=== PATIENT | male | born 1970 | race Caucasian/White ===

== ENCOUNTER 2021-04-27 16:25 | Inpatient (IN) ==
[2021-04-27] MEDS ORDERED: cefTRIAXone SODIUM 2,000 MG/70 ML BAG IV STA (19:03)
[2021-04-27] MEDS ORDERED: VANCOMYCIN CONSULT ACTIVE PRN ×2 (19:03→23:59)
[2021-04-27] MEDS ORDERED: VANCOMYCIN HCL 2,750 MG in SODIUM CHLORIDE 0.9% 500 ML IV ONE (19:03)
[2021-04-27] MEDS ORDERED: SODIUM CHLORIDE 0.9% 1000ML 1,000 ML IV SCH (19:15)
--- NOTE | 2021-04-27 19:39 | Emergency Department Note ---
Impression & Plan Cellulitis of left arm, Bursitis of left elbow, Failure of outpatient treatment, Leukocytosis ED Provider Note NAME: TRUDY ROGEL AGE: 50 SEX: M : 1970 ARRIVES VIA: Walk-In INFORMANT: [Patient] ED PROVIDER(S): [Sergio Coleman MD] CHIEF COMPLAINT: Infection HISTORY OF PRESENT ILLNESS: The patient is a 50-year-old male presents to the ER with increasing redness and swelling to the left elbow/arm. The patient states that he has had symptoms for 5 days. Every day, the redness is worse. He has had occasional chills but no real fever documented. The patient was seen in this ED 2 days ago and placed on Keflex and Bactrim. His white count at that time was 14,000. He states that the redness has continued to spread. It is now almost to his axilla and extends down to his wrist. There has been no cough or congestion. No shortness of breath. The patient den ies any tick bites. The patient is a diabetic. There was no trauma to the left elbow. REVIEW OF SYSTEMS: See HPI for pertinent positives and negatives. A total of ten systems were reviewed and were otherwise negative. PMHx/PSHx: See Below SOCIAL HISTORY: See Below. PHYSICAL EXAM: GENERAL: Patient is in no acute distress. HEENT: No acute trauma, normocephalic atraumatic, mucous membranes moist, no nasal congestion, no scleral icterus. NECK: No stridor, no adenopathy, no meningismus, trachea is midline. LUNGS: Clear to auscultation bilaterally, no wheeze, no rhonchi, breath sounds equal. HEART: Without murmurs gallops or rubs, regular rate and rhythm. ABDOMEN: Soft, nontender, bowel sounds positive, no hernias, no peritonitis. EXTREMITIES: No cyanosis. The patient's left elbow is swollen and there is erythema that extends from his axilla down to his wrist. There is warmth. No drainage. The outlined areas of erythema clearly have increased over time. No evidence for left upper extremity neurovascular compromise. There is some fluctuance at the left elbow posterior bursa space. NEUROLOGIC: Oriented x 3, no acute motor or sensory deficits, no focal weakness. SKIN: No jaundice, no diaphoresis. DIFFERENTIAL DIAGNOSIS: Sepsis, UTI, pneumonia, metabolic abnormality, electrolyte abnormalities, olecranon bursitis, failed outpatient treatment, cardiac sources, cellulitis, UTI, bacteremia, intracerebral event, toxicologic etiology, neurologic event, as well as other pathologies. EMERGENCY DEPARTMENT COURSE/PROCEDURES: ECG: Indication was tachycardia. The ECG shows a normal sinus rhythm with a rate of 95. There is no ST elevation, no PVCs. There is poor R wave progression. The QTc is 449. Continuous Cardiac Monitoring: An order was placed for continuous cardiac monitoring. The monitor shows a rate of 106 with sinus tachycardia. MEDICAL DECISION MAKING: There is a mild leukocytosis which would be consistent with infection. There is a normal hemoglobin and platelet count. No coagulopathy. No significant electrolyte abnormality or kidney failure. Lactic acid level is not elevated making sepsis less likely. Alk phos was mildly elevated, the remaining liver enzymes were unremarkable. Covid testing is pending. On exam, the patient had a left arm olecranon bursitis and cellulitis. It had spread beyond the outlined borders. The patient was not febrile. He presented mildly tachycardic. The patient was given IV ceftriaxone and IV vancomycin. He received IV saline. I did discuss the case with orthopedics. Hospitalization is warranted as the patient is not responding to oral antibiotics. The patient can be seen by orthopedics tomorrow and the decision for operating room intervention can be made then. I spoke to the patient and case management. The on-call hospitalist was consulted. Past Med/Surg History Medical History Diabetes Hyperlipidemia Hypertension Social History Smoking Status: Never smoker Feels Safe at Home: Yes Allergies Allergies Allergy/AdvReac Type Severity Reaction Status Date / Time No Known Allergies Allergy Unverified 04/27/21 20:01 Home Meds Home Medications Medication Instructions Recorded Confirmed empagliflozin 10 mg tablet 10 mg PO DAILY 04/25/21 04/27/21 (Jardiance) metformin 1,000 mg tablet 1,000 mg PO BID 04/25/21 04/27/21 rosuvastatin 10 mg tablet 10 mg PO HS 04/25/21 04/27/21 valsartan 80 mg tablet 80 mg PO DAILY 04/25/21 04/27/21 Previous Rx's Medication Instructions Recorded cephalexin 500 mg capsule 500 mg PO Q6H 10 Days #40 cap 04/25/21 sulfamethoxazole 800 1 tab PO Q12H 10 Days #20 tab 04/25/21 mg-trimethoprim 160 mg tablet (Bactrim DS) Results & Data (ED) Vital Signs Vital Signs - 24 hr 04/27/21 16:50 04/27/21 19:03 04/27/21 19:33 Temperature 36.7 C Temperature Source Temporal Artery Scan Pulse Rate 106 H 91 H Pulse Rate [Left] Pulse Rhythm Regular Pulse Rhythm [Left] Pulse Strength [Left] Respiratory Rate 18 Respiratory Effort / Characteristics Non-Labored Non-Labored Respiratory Depth Respiratory Pattern Blood Pressure 138/82 Blood Pressure [Right Arm] Blood Pressure Mean 100 Blood Pressure Mean [Right Arm] Blood Pressure Position [Right Arm] Pulse Oximetry 97 99 Oxygen Delivery Method Room Air Room Air Sepsis Recent Fever Within 48 Hours No Sepsis New/Unexplained Change in Mental Status No Sepsis Action Taken by Nursing No Action Required 04/27/21 19:48 04/27/21 20:01 04/27/21 20:03 Temperature Temperature Source Pulse Rate Pulse Rate [Left] 96 H 89 Pulse Rhythm Pulse Rhythm [Left] Regular Regular Pulse Strength [Left] Normal Normal Respiratory Rate 18 18 18 Respiratory Effort / Characteristics Non-Labored Non-Labored Non-Labored Respiratory Depth Normal Normal Respiratory Pattern Regular Regular Blood Pressure Blood Pressure [Right Arm] 125/86 123/90 Blood Pressure Mean Blood Pressure Mean [Right Arm] 99 101 Blood Pressure Position [Right Arm] Sitting Sitting Pulse Oximetry 98 95 95 Oxygen Delivery Method Room Air Room Air Room Air Sepsis Recent Fever Within 48 Hours Sepsis New/Unexplained Change in Mental Status Sepsis Action Taken by Nursing 04/27/21 20:15 04/27/21 20:30 04/27/21 20:33 Temperature Temperature Source Pulse Rate Pulse Rate [Left] 90 90 Pulse Rhythm Pulse Rhythm [Left] Regular Regular Pulse Strength [Left] Normal Normal Respiratory Rate 18 19 18 Respiratory Effort / Characteristics Non-Labored Non-Labored Non-Labored Respiratory Depth Normal Normal Respiratory Pattern Regular Regular Blood Pressure Blood Pressure [Right Arm] 125/82 124/76 Blood Pressure Mean Blood Pressure Mean [Right Arm] 96 92 Blood Pressure Position [Right Arm] Sitting Lying Pulse Oximetry 98 98 95 Oxygen Delivery Method Room Air Room Air Room Air Sepsis Recent Fever Within 48 Hours Sepsis New/Unexplained Change in Mental Status Sepsis Action Taken by Nursing 04/27/21 20:45 04/27/21 21:00 04/27/21 21:10 Temperature Temperature Source Pulse Rate Pulse Rate [Left] 90 89 93 H Pulse Rhythm Pulse Rhythm [Left] Regular Regular Regular Pulse Strength [Left] Normal Normal Normal Respiratory Rate 18 19 19 Respiratory Effort / Characteristics Non-Labored Non-Labored Non-Labored Respiratory Depth Normal Normal Normal Respiratory Pattern Regular Regular Regular Blood Pressure Blood Pressure [Right Arm] 115/84 131/91 131/91 Blood Pressure Mean Blood Pressure Mean [Right Arm] 94 104 104 Blood Pressure Position [Right Arm] Lying Lying Pulse Oximetry 96 95 99 Oxygen Delivery Method Room Air Room Air Room Air Sepsis Recent Fever Within 48 Hours Sepsis New/Unexplained Change in Mental Status Sepsis Action Taken by [facility] Medications Current Medication List: was personally reviewed by me Laboratory Data Attestation: I reviewed the patient's lab results. Result diagrams: 04/27/21 19:25 04/27/21 19:25 Lab Results 04/27/21 04/27/21 04/27/21 Range/Units 19:25 19:25 19:25 WBC 13.85 H (4.8-10.8) K/uL RBC 5.06 (4.7-6.1) M/uL Hgb 16.4 (14.0-18.0) g/dL Hct 46.5 (42-52) % MCV 91.9 (80-100) fL MCH 32.4 (25-34) pg MCHC 35.3 (32-36) g/dL RDW Std Deviation 43.0 (36.4-46.3) fL RDW Coeff of Michael 12.8 (11.5-14.5) % Plt Count 242 (130-400) K/uL MPV 11.1 H (7.4-10.4) fL Immature Gran % (Auto) 0.4 % Neut % (Auto) 75.3 % Lymph % (Auto) 12.5 % [place] % (Auto) 10.7 % Eos % (Auto) 1.0 % Baso % (Auto) 0.1 % Neut # (Auto) 10.42 H (1.4-6.5) K/uL Lymph # (Auto) 1.73 (1.2-3.4) K/uL [place] # (Auto) 1.48 H (0.11-0.59) K/uL Eos # (Auto) 0.14 (0-0.5) K/uL Baso # (Auto) 0.02 (0-0.2) K/uL Immature Gran # (Auto) 0.06 H (0.00-0.02) K/uL PT 9.8 (9.0-12.0) Seconds INR 1.0 (0.9-1.1) APTT 28.9 (21.0-31.0) Seconds PTT Ratio 1.1 Sodium 136 (136-145) mmol/L Potassium 4.3 (3.5-5.1) mmol/L Chloride 103 (98-107) mmol/L Carbon Dioxide 26 (21-32) mmol/L Anion Gap 7.0 (3-11) BUN 14 (7-18) mg/dl Creatinine 0.99 (0.6-1.4) mg/dl Est Cr Clr Drug Dosing 120.0 ml/min Est GFR ( Amer) 101.8 ml/min Est GFR (Non-Af Amer) 87.8 ml/min BUN/Creatinine Ratio 14.2 (10-20) Glucose 160 H (70-99) mg/dl Lactate (0.4-2.0) mmol/L Uric Acid 3.1 (2.6-7.2) mg/dl Calcium 9.4 (8.5-10.1) mg/dl Magnesium 2.3 (1.8-2.4) mg/dl Total Bilirubin 0.7 (0.2-1) mg/dl AST 13 L (15-37) U/L ALT 59 (12-78) U/L Alkaline Phosphatase 146 H (45-117) U/L Total Protein 8.0 (6.4-8.2) gm/dl Albumin 3.3 L (3.4-5.0) gm/dl Globulin 4.7 H (2.5-4.0) gm/dl Albumin/Globulin Ratio 0.7 L (0.9-2) Procalcitonin (0-0.5) ng/ml COVID-19 Eval Order 04/27/21 04/27/21 04/27/21 Range/Units 19:25 19:25 20:57 WBC (4.8-10.8) K/uL RBC (4.7-6.1) M/uL Hgb (14.0-18.0) g/dL Hct (42-52) % MCV (80-100) fL MCH (25-34) pg MCHC (32-36) g/dL RDW Std Deviation (36.4-46.3) fL RDW Coeff of Michael (11.5-14.5) % Plt Count (130-400) K/uL MPV (7.4-10.4) fL Immature Gran % (Auto) % Neut % (Auto) % Lymph % (Auto) % [place] % (Auto) % Eos % (Auto) % Baso % (Auto) % Neut # (Auto) (1.4-6.5) K/uL Lymph # (Auto) (1.2-3.4) K/uL [place] # (Auto) (0.11-0.59) K/uL Eos # (Auto) (0-0.5) K/uL Baso # (Auto) (0-0.2) K/uL Immature Gran # (Auto) (0.00-0.02) K/uL PT (9.0-12.0) Seconds INR (0.9-1.1) APTT (21.0-31.0) Seconds PTT Ratio Sodium (136-145) mmol/L Potassium (3.5-5.1) mmol/L Chloride (98-107) mmol/L Carbon Dioxide (21-32) mmol/L Anion Gap (3-11) BUN (7-18) mg/dl Creatinine (0.6-1.4) mg/dl Est Cr Clr Drug Dosing ml/min Est GFR ( Amer) ml/min Est GFR (Non-Af Amer) ml/min BUN/Creatinine Ratio (10-20) Glucose (70-99) mg/dl Lactate 1.5 (0.4-2.0) mmol/L Uric Acid (2.6-7.2) mg/dl Calcium (8.5-10.1) mg/dl Magnesium (1.8-2.4) mg/dl Total Bilirubin (0.2-1) mg/dl AST (15-37) U/L ALT (12-78) U/L Alkaline Phosphatase (45-117) U/L Total Protein (6.4-8.2) gm/dl Albumin (3.4-5.0) gm/dl Globulin (2.5-4.0) gm/dl Albumin/Globulin Ratio (0.9-2) Procalcitonin 0.56 H (0-0.5) ng/ml COVID-19 Eval Order Covid19 at [facility] Administered Medications Vancomycin HCl 2,750 mg/ (Sodium Chloride) 555 mls @ 200 mls/hr IV NOW ONE Stop: 04/27/21 21:50 Last Admin: 04/27/21 20:07 Dose: 200 mls/hr Documented by: [id number] Discontinued Medications Sodium Chloride (Nss 1000ml) 1,000 mls @ 999 mls/hr IV .Q1H1M FITO Stop: 04/27/21 20:15 Last Infusion: 04/27/21 20:37 Dose: 0 mls/hr Documented by: [id number] Admin: 04/27/21 19:26 Dose: 999 mls/hr Documented by: [id number] Ceftriaxone Sodium (Rocephin) 2,000 mg in 70 mls @ 140 mls/hr IV NOW STA Stop: 04/27/21 19:32 Last Infusion: 04/27/21 20:37 Dose: 0 mls/hr Documented by: [id number] Admin: 04/27/21 20:00 Dose: 140 mls/hr Documented by: [id number] Discharge Plan Visit Data Chief Complaint: Elbow Injury/Pain Stated Complaint: L ELBOW PAIN ED Provider: Sergio Coleman Discharge Problem: Cellulitis of left arm, Bursitis of left elbow, Failure of outpatient treatment, Leukocytosis Patient Disposition: Admitted As Inpatient Condition: Fair Forms Stand Alone Forms: My [facility] Prescriptions Prescriptions: No Action valsartan 80 mg tablet 80 mg PO DAILY RF: 0 metformin 1,000 mg tablet 1,000 mg PO BID RF: 0 rosuvastatin 10 mg tablet 10 mg PO HS RF: 0 Jardiance 10 mg tablet 10 mg PO DAILY RF: 0 sulfamethoxazole-trimethoprim [Bactrim DS] 800-160 mg tablet 1 tab PO Q12H 10 Days Qty: 20 RF: 0 cephalexin 500 mg capsule 500 mg PO Q6H 10 Days Qty: 40 RF: 0 Referrals Referrals: PCP,NO [Primary Care Provider] -
[2021-04-27 19:55] LABS: Basophils # (auto) 0.02 K/uL (0-0.2); Basophils % (auto) 0.1 %; Eosinophils # (auto) 0.14 K/uL (0-0.5); Hematocrit (blood only) 46.5 % (42-52); Hemoglobin 16.4 g/dL (14.0-18.0); Immature Granulocytes # (auto) 0.06 K/uL (0.00-0.02); Immature Granulocytes % (auto) 0.4 %; Lymphocytes # (auto) 1.73 K/uL (1.2-3.4); Lymphocytes % (auto) 12.5 %; Mean Corpuscular Hemoglobin 32.4 pg (25-34); Mean Corpuscular Hgb Conc 35.3 g/dL (32-36); Mean Corpuscular Volume 91.9 fL (80-100); Mean Platelet Volume 11.1 fL (7.4-10.4); Monocytes # (auto) 1.48 K/uL (0.11-0.59); Monocytes % (auto) 10.7 %; Neutrophils # (auto) 10.42 K/uL (1.4-6.5); Neutrophils % (auto) 75.3 %; Platelet Count 242 K/uL (130-400); RDW Coefficient of Variation 12.8 % (11.5-14.5); Red Blood Count 5.06 M/uL (4.7-6.1); White Blood Count 13.85 K/uL (4.8-10.8)
[2021-04-27 20:03] LABS: Partial Thromboplastin Ratio 1.1; Partial Thromboplastin Time 28.9 Seconds (21.0-31.0); Prothrombin Time 9.8 Seconds (9.0-12.0)
[2021-04-27 20:13] LABS: Albumin Level 3.3 gm/dl (3.4-5.0); BUN Creatinine Ratio 14.2 (10-20); Calcium 9.4 mg/dl (8.5-10.1); Est GFR (African American) 101.8 ml/min; Est GFR (Non-African American) 87.8 ml/min; Magnesium 2.3 mg/dl (1.8-2.4); Potassium 4.3 mmol/L (3.5-5.1)
[2021-04-27 20:26] LABS: Albumin Globulin Ratio 0.7 (0.9-2); Bilirubin,Total 0.7 mg/dl (0.2-1); Globulin 4.7 gm/dl (2.5-4.0)
[2021-04-27 21:15] LABS: Uric Acid 3.1 mg/dl (2.6-7.2)
--- NOTE | 2021-04-27 22:01 | History & Physical Report ---
Date of Service April 27, 2021 Assessment & Plan (1) Cellulitis of left arm: Plan: Cellulitis of left arm/failure of outpatient treatment- Hold Keflex and Bactrim Continue vancomycin IV and ceftriaxone IV begun in the ED I did add a uric acid level with concerns regarding possible underlying gout, due to patient's diet and associated family history of a brother with gout. Uric acid level was normal, however, if patient's symptoms persist despite appropriate abortive therapy, he should have a trial of colchicine (2) Hypertension: Plan: Continue valsartan (3) Hyperlipidemia: Plan: Continue rosuvastatin 10 mg in the evening (4) Diabetes: Plan: Hold Jardiance and Metformin Patient Accu-Cheks before meals and at bedtime with NovoLog coverage per scale Check hemoglobin A1c (5) Failure of outpatient treatment: Plan: Outpatient antibiotics Keflex and Bactrim are being held, in favor of inpatient IV vancomycin and ceftriaxone History of Present Illness Chief Complaint: The patient presents to the emergency department with complaint of worsening swelling, redness and warmth of left arm and elbow despite treatment with Keflex and Bactrim began from the ED 2 days ago Primary Care Provider: NO PCP The patient is a 50-year-old male with a past medical history including diabetes mellitus, hyperlipidemia, hypertension and obesity who was initially seen in the emergency department on 04/25/2021, diagnosed with cellulitis of left arm and elbow, and was started on Keflex and Bactrim and advised to follow-up with his family physician. The patient presents to the emergency department today with worsening symptoms as noted above, despite appropriate use these antibiotics. He denies any recent trauma, he denies any tick bites he denies any sick exposures. He does eat a lot of red meats and seafood. He does have a brother with an episode of gout, however, he himself has not have any personal history of gout Allergies Allergy/AdvReac Type Severity Reaction Status Date / Time No Known Allergies Allergy Unverified 04/27/21 20:01 Home Medications Medication Instructions Recorded Confirmed Type cephalexin 500 mg capsule 500 mg PO Q6H 10 Days #40 cap 04/25/21 04/27/21 Rx empagliflozin 10 mg tablet 10 mg PO DAILY 04/25/21 04/27/21 History (Jardiance) metformin 1,000 mg tablet 1,000 mg PO BID 04/25/21 04/27/21 History rosuvastatin 10 mg tablet 10 mg PO HS 04/25/21 04/27/21 History sulfamethoxazole 800 1 tab PO Q12H 10 Days #20 tab 04/25/21 04/27/21 Rx mg-trimethoprim 160 mg tablet (Bactrim DS) valsartan 80 mg tablet 80 mg PO DAILY 04/25/21 04/27/21 History Past Med/Surg History Medical History (Updated 04/28/21 @ 04:37 by Celestino Matamoros MD) Diabetes Hyperlipidemia Hypertension Social History Smoking Status: Never smoker Second Hand Exposure: No; Hx Alcohol Use: Yes Alcohol type: beer, wine and hard liquor Hx Substance Use: No Preferred Language: Azeri Communication Ability: Effective Video Arcade Manager Required: No Beliefs That Will Affect Care: None Current Living Situation: Family Current Living Situation Comment: Son and daughter Other Information That Helps Us Care for You: No Feels Safe at Home: Yes Safety Concerns: Feels Safe At This Time Assistive Devices: None Review of Systems Review of Systems: The patient denies chest pain, palpitations, shortness of breath, dyspnea on exertion, cough, lower extremity swelling, sore throat, fevers, chills, sweats, weight change, fatigue, nausea, vomiting, diarrhea , constipation, abdominal pain, pelvic pain, blood in urine or stool, dysuria, urinary frequency or urgency, lightheadedness, dizziness, headache, memory loss, loss of consciousness, abnormal bruising or bleeding, imbalance, focal or generalized weakness, numbness or tingling in legs, generalized arthralgias or myalgias, back or neck pain, or night sweats. The review of systems is otherwise negative other than for that already noted above, and at least 10 systems have been reviewed. Physical Exam Physical Exam: The patient is awake, alert and oriented 3, well developed and well nourished, normocephalic and atraumatic, lying in bed and in no acute distress. HEENT--PERRL, EOMI, mucous membranes and oropharynx normal. Neck--supple. No JVD. No bruits. Thyroid normal, trachea midline, no adenopathy. Heart--normal S1 and S2. No murmurs, rubs or gallops. Lungs--clear bilaterally, no respiratory distress, no accessory muscle use. Abdomen--normal bowel sounds and soft. Nontender. Nondistended, no hernias or masses, no organomegaly. Extremities--bilateral lower extremities with no edema. Dermatologic--left elbow with erythema extending proximally to jail up bicep, and distally toward wrist but not involving hand. Skin is warm to touch Neurologic--cranial nerves II through XII grossly intact. Rheumatologic--normal range of motion except for left elbow, with decreased ability to flex Psychiatric--normal affect. Results & Data Results & Data ([facility]) Vital Signs (Past 12 Hours) Vital Signs Temp Pulse Pulse Resp BP BP Pulse Ox 04/27/21 21:30 98 H 18 117/77 96 04/27/21 21:15 97 H 18 119/85 96 04/27/21 21:10 93 H 19 131/91 99 04/27/21 21:00 89 19 131/91 95 04/27/21 20:45 90 18 115/84 96 04/27/21 20:33 18 95 04/27/21 20:30 90 19 124/76 98 04/27/21 20:15 90 18 125/82 98 04/27/21 20:03 18 95 04/27/21 20:01 89 18 123/90 95 04/27/21 19:48 96 H 18 125/86 98 04/27/21 19:03 91 H 99 04/27/21 16:50 98.1 F 106 H 18 138/82 97 Laboratory Results Laboratory Results WBC 13.85 K/uL (4.8-10.8) H 04/27/21 19:25 RBC 5.06 M/uL (4.7-6.1) 04/27/21 19:25 Hgb 16.4 g/dL (14.0-18.0) 04/27/21 19:25 Hct 46.5 % (42-52) 04/27/21 19:25 MCV 91.9 fL (80-100) 04/27/21 19:25 MCH 32.4 pg (25-34) 04/27/21 19:25 MCHC 35.3 g/dL (32-36) 04/27/21 19:25 RDW Std Deviation 43.0 fL (36.4-46.3) 04/27/21 19:25 RDW Coeff of Michael 12.8 % (11.5-14.5) 04/27/21 19:25 Plt Count 242 K/uL (130-400) 04/27/21 19:25 MPV 11.1 fL (7.4-10.4) H 04/27/21 19:25 Immature Gran % (Auto) 0.4 % 04/27/21 19:25 Neut % (Auto) 75.3 % 04/27/21 19:25 Lymph % (Auto) 12.5 % 04/27/21 19:25 [place] % (Auto) 10.7 % 04/27/21 19:25 Eos % (Auto) 1.0 % 04/27/21:25 Baso % (Auto) 0.1 % 04/27/21: Neut # (Auto) 10.42 K/uL (1.4-6.5) H 04/27/21 19:25 Lymph # (Auto) 1.73 K/uL (1.2-3.4) 04/27/21 19:25 [place] # (Auto) 1.48 K/uL (0.11-0.59) H 04/27/21 19:25 Eos # (Auto) 0.14 K/uL (0-0.5) 04/27/21 19:25 Baso # (Auto) 0.02 K/uL (0-0.2) 04/27/21 19: Immature Gran # (Auto) 0.06 K/uL (0.00-0.02) H 04/27/21 19:25 PT 9.8 Seconds (9.0-12.0) 04/27/21 19:25 INR 1.0 (0.9-1.1) 04/27/21 19:25 APTT 28.9 Seconds (21.0-31.0) 04/27/21 19:25 PTT Ratio 1.1 04/27/21 19:25 Sodium 136 mmol/L (136-145) 04/27/21 19:25 Potassium 4.3 mmol/L (3.5-5.1) 04/27/21 19:25 Chloride 103 mmol/L (98-107) 04/27/21 19:25 Carbon Dioxide 26 mmol/L (21-32) 04/27/21 19:25 Anion Gap 7.0 (3-11) 04/27/21 19:25 BUN 14 mg/dl (7-18) 04/27/21 19:25 Creatinine 0.99 mg/dl (0.6-1.4) 04/27/21 19:25 Est Cr Clr Drug Dosing 120.0 ml/min 04/27/21 19:25 Est GFR ( Amer) 101.8 ml/min 04/27/21 19:25 Est GFR (Non-Af Amer) 87.8 ml/min 04/27/21 19:25 BUN/Creatinine Ratio 14.2 (10-20) 04/27/21 19:25 Glucose 160 mg/dl (70-99) H 04/27/21 19:25 Lactate 1.5 mmol/L (0.4-2.0) 04/27/21 19:25 Uric Acid 3.1 mg/dl (2.6-7.2) 04/27/21 19:25 Calcium 9.4 mg/dl (8.5-10.1) 04/27/21 19:25 Magnesium 2.3 mg/dl (1.8-2.4) 04/27/21 19:25 Total Bilirubin 0.7 mg/dl (0.2-1) 04/27/21 19:25 AST 13 U/L (15-37) L 04/27/21 19:25 ALT 59 U/L (12-78) 04/27/21 19:25 Alkaline Phosphatase 146 U/L (45-117) H 04/27/21 19:25 Total Protein 8.0 gm/dl (6.4-8.2) 04/27/21 19:25 Albumin 3.3 gm/dl (3.4-5.0) L 04/27/21 19:25 Globulin 4.7 gm/dl (2.5-4.0) H 04/27/21 19:25 Albumin/Globulin Ratio 0.7 (0.9-2) L 04/27/21 19:25 Procalcitonin 0.56 ng/ml (0-0.5) H 04/27/21 19:25 COVID-19 Eval Order Covid19 at [facility] 04/27/21 20:57 SARS-CoV-2 (PCR) NEGATIVE (Negative) 04/27/21 20:57 Code Status & VTE Plan Code Status Full code VTE Prophylaxis Plan VTE Prophylaxis will be ordered: Yes PG Care Time/CCT Total # of Minutes Spent Total Time Spent with Patient: Total time spent is greater than 50% in coordination of care (as documented) at patient's floor/unit and/or counseling patient: Coding Level of Care Code 77134 Initial Inpt Care Lvl 3 Diagnoses Hypertension I10 Hyperlipidemia E78.5 Diabetes E11.9 Cellulitis of left arm L03.114 Failure of outpatient treatment Z78.9
[2021-04-27] MEDS ORDERED: ONDANSETRON INJ 2 MG/ML 2 ML VIAL IV PRN (23:59)
[2021-04-28] MEDS ORDERED: ACETAMINOPHEN 325 MG TAB ONE (00:39)
[2021-04-28] MEDS: VANCOMYCIN HCL 1,750 MG in SODIUM CHLORIDE 0.9% 500 ML IV SCH ×3 (04:08→21:27)
[2021-04-28 07:18] LABS: Basophils # (auto) 0.01 K/uL (0-0.2); Basophils % (auto) 0.1 %; Eosinophils # (auto) 0.07 K/uL (0-0.5); Eosinophils % (auto) 0.5 %; Hematocrit (blood only) 42.4 % (42-52); Hemoglobin 14.7 g/dL (14.0-18.0); Immature Granulocytes # (auto) 0.04 K/uL (0.00-0.02); Immature Granulocytes % (auto) 0.3 %; Lymphocytes % (auto) 9.1 %; Mean Corpuscular Hemoglobin 32.1 pg (25-34); Mean Corpuscular Hgb Conc 34.7 g/dL (32-36); Mean Corpuscular Volume 92.6 fL (80-100); Monocytes % (auto) 9.8 %; Neutrophils # (auto) 11.49 K/uL (1.4-6.5); Neutrophils % (auto) 80.2 %; Platelet Count 259 K/uL (130-400); RDW Coefficient of Variation 12.8 % (11.5-14.5); RDW Standard Deviation 43.3 fL (36.4-46.3); Red Blood Count 4.58 M/uL (4.7-6.1); White Blood Count 14.31 K/uL (4.8-10.8)
[2021-04-28] MEDS: VALSARTAN 80 MG TAB PO SCH (07:48)
[2021-04-28] MEDS: cefTRIAXone SODIUM 2,000 MG in DEXTROSE 5% 50 ML IV SCH (07:48)
[2021-04-28 07:49] LABS: Albumin Level 2.8 gm/dl (3.4-5.0); Calcium 8.3 mg/dl (8.5-10.1); Creatinine Clr Calc Pharmacy 144.6 ml/min; Est GFR (African American) 118.7 ml/min; Est GFR (Non-African American) 102.4 ml/min; Magnesium 1.9 mg/dl (1.8-2.4); Potassium 4.1 mmol/L (3.5-5.1)
[2021-04-28 07:52] LABS: Albumin Globulin Ratio 0.7 (0.9-2); Bilirubin,Total 0.9 mg/dl (0.2-1); Globulin 4.1 gm/dl (2.5-4.0); Total Protein 6.9 gm/dl (6.4-8.2)
--- NOTE | 2021-04-28 08:53 | Pharmacy Report ---
Pharmacy Abx Dose Short Note - Date of Service April 28, 2021 - Assessment & Plan Assessment 50 year old M admitted last evening secondary to worsening left arm cellulitis * PMHx significant for T2DM * He was started on Cephalexin and Bactrim DS as an outpatient on 04/25/21. Redness and warmth worsened into 04/27/21 despite abx so patient presented to the ED. * He remains afebrile. Leukocytosis of 14.3k today. Renal fxn is stable and at baseline. Procalcitonin upon admission was 0.56 ng/mL. * Blood cultures are pending. Plan Vancomycin * Loading Dose: 2750 mg (~24 mg/kg) IV x 1 * Maintenance Dose: 1750 (~15 mg/kg) IV every 8 hours * Goal trough level: ~15 mcg/mL * Ordered a trough level for 04/29/21 prior to the 1400 dose Ceftriaxone (not a pharmacy consult) * 2000 mg IV every 24 hours * Appropriate per indication and body weight Pharmacy will continue to follow and will adjust dose/frequency as necessary. Thank you.
[2021-04-28] MEDS: ACETAMINOPHEN 325 MG TAB PO PRN ×3 (08:54→18:29)
--- NOTE | 2021-04-28 12:52 | Hospitalist Progress Note ---
Date of Service April 28, 2021 Assessment & Plan (1) Cellulitis of left arm: Plan: Cellulitis of left arm/failure of outpatient treatment- With significant fluctuance over left elbow with small scab centrally, ++erythema from wrist up to axilla over majority of LUE, decreased ROM 10-90 degrees left elbow, +TTP and warmth Leukocytosis worse, afebrile here, BCxs NGTD Suspect septic olecranon bursitis and surrounding cellulitis No h/o MRSA or frequent skin infections but does have DMII Uric acid normal and do not suspect gout -check CT scan left elbow -consult Ortho to see about need for I&D -Continue vancomycin IV and ceftriaxone IV -follow CBC -pt already ate today for lunch so would not likely be able to do surgery today if needed (2) Hypertension: Plan: BPs controlled Continue valsartan (3) Hyperlipidemia: Plan: Continue rosuvastatin 10 mg in the evening (4) Diabetes: Plan: Hold Jardiance and Metformin add on SSI today, accuchecks Check hemoglobin A1c (5) Failure of outpatient treatment: Plan: Outpatient antibiotics Keflex and Bactrim are being held, in favor of inpatient IV vancomycin and ceftriaxone (6) DVT prophylaxis: Plan: add SCDs, no Lovenox for now in case of need for surgery Dispo-continued stay Admission and Anticipated Discharge Date Admission Date: April 27, 2021 Subjective Pt very frustrated that his arm is not improving. Has had fevers/chills subjectively at home. has pain and decreased flexion in elbow. Denies CP, SOB, abd pain, nausea, or diarrhea. Has failed outpatient Bactrim, keflex over the last 2 days. Says arm today no better than yesterday since receiving IV abx. Review of Systems Review of Systems: All systems reviewed & are unremarkable except as noted in HPI & below Physical Exam Constitutional: WD/WN, vitals as above Eyes: + anicteric sclerae ENMT: external ear and nose normal, oropharynx normal Neck: trachea midline, no thyromegaly Respiratory: normal respiratory effort, lungs clear to auscultation Cardiovascular: RRR, no murmur, no edema Chest (Breasts): Chest: normal inspection of chest Gastrointestinal (Abdomen): normal bowel sounds, soft, nontender, no hepatosplenomegaly Musculoskeletal: Extremities: + limited ROM of extremities (L elbow 10-90 degrees ) and + elbow/forearm abnormality Left (fluctuence palpated over left elbow,small scab); + extremities abnormal to inspection (LUE almost completely erythematous,edematous), no cyanosis and no clubbing Skin: no rashes, warm and dry Neurologic: moves all extremities and awake; no focal motor deficits Psychiatric: A+Ox3, euthymic affect Lymphatic: no lymphedema Results & Data Results & Data ([facility]) Vital Signs (Past 12 Hours) Vital Signs Temp Pulse Resp BP Pulse Ox 04/28/21 07:00 37.2 C 103 H 16 120/76 92 Laboratory Results 04/28/21 04/28/21 04/27/21 Range/Units 06:47 06:47 20:57 WBC 14.31 H (4.8-10.8) K/uL RBC 4.58 L (4.7-6.1) M/uL Hgb 14.7 (14.0-18.0) g/dL Hct 42.4 (42-52) % MCV 92.6 (80-100) fL MCH 32.1 (25-34) pg MCHC 34.7 (32-36) g/dL RDW Std Deviation 43.3 (36.4-46.3) fL RDW Coeff of Michael 12.8 (11.5-14.5) % Plt Count 259 (130-400) K/uL MPV 11.0 H (7.4-10.4) fL Immature Gran % (Auto) 0.3 % Neut % (Auto) 80.2 % Lymph % (Auto) 9.1 % [place] % (Auto) 9.8 % Eos % (Auto) 0.5 % Baso % (Auto) 0.1 % Neut # (Auto) 11.49 H (1.4-6.5) K/uL Lymph # (Auto) 1.30 (1.2-3.4) K/uL [place] # (Auto) 1.40 H (0.11-0.59) K/uL Eos # (Auto) 0.07 (0-0.5) K/uL Baso # (Auto) 0.01 (0-0.2) K/uL Immature Gran # (Auto) 0.04 H (0.00-0.02) K/uL PT (9.0-12.0) Seconds INR (0.9-1.1) APTT (21.0-31.0) Seconds PTT Ratio Sodium 134 L (136-145) mmol/L Potassium 4.1 (3.5-5.1) mmol/L Chloride 104 (98-107) mmol/L Carbon Dioxide 21 (21-32) mmol/L Anion Gap 10.0 (3-11) BUN 13 (7-18) mg/dl Creatinine 0.82 (0.6-1.4) mg/dl Est Cr Clr Drug Dosing 144.6 ml/min Est GFR ( Amer) 118.7 ml/min Est GFR (Non-Af Amer) 102.4 ml/min BUN/Creatinine Ratio 16.0 (10-20) Glucose 156 H (70-99) mg/dl Lactate (0.4-2.0) mmol/L Uric Acid (2.6-7.2) mg/dl Calcium 8.3 L (8.5-10.1) mg/dl Magnesium 1.9 (1.8-2.4) mg/dl Total Bilirubin 0.9 (0.2-1) mg/dl AST 11 L (15-37) U/L ALT 42 (12-78) U/L Alkaline Phosphatase 121 H (45-117) U/L Total Protein 6.9 (6.4-8.2) gm/dl Albumin 2.8 L (3.4-5.0) gm/dl Globulin 4.1 H (2.5-4.0) gm/dl Albumin/Globulin Ratio 0.7 L (0.9-2) Procalcitonin (0-0.5) ng/ml COVID-19 Eval Order SARS-CoV-2 (PCR) NEGATIVE (Negative) 04/27/21 04/27/21 04/27/21 Range/Units 20:57 19:25 19:25 WBC (4.8-10.8) K/uL RBC (4.7-6.1) M/uL Hgb (14.0-18.0) g/dL Hct (42-52) % MCV (80-100) fL MCH (25-34) pg MCHC (32-36) g/dL RDW Std Deviation (36.4-46.3) fL RDW Coeff of Michael (11.5-14.5) % Plt Count (130-400) K/uL MPV (7.4-10.4) fL Immature Gran % (Auto) % Neut % (Auto) % Lymph % (Auto) % [place] % (Auto) % Eos % (Auto) % Baso % (Auto) % Neut # (Auto) (1.4-6.5) K/uL Lymph # (Auto) (1.2-3.4) K/uL [place] # (Auto) (0.11-0.59) K/uL Eos # (Auto) (0-0.5) K/uL Baso # (Auto) (0-0.2) K/uL Immature Gran # (Auto) (0.00-0.02) K/uL PT (9.0-12.0) Seconds INR (0.9-1.1) APTT (21.0-31.0) Seconds PTT Ratio Sodium (136-145) mmol/L Potassium (3.5-5.1) mmol/L Chloride (98-107) mmol/L Carbon Dioxide (21-32) mmol/L Anion Gap (3-11) BUN (7-18) mg/dl Creatinine (0.6-1.4) mg/dl Est Cr Clr Drug Dosing ml/min Est GFR ( Amer) ml/min Est GFR (Non-Af Amer) ml/min BUN/Creatinine Ratio (10-20) Glucose (70-99) mg/dl Lactate 1.5 (0.4-2.0) mmol/L Uric Acid (2.6-7.2) mg/dl Calcium (8.5-10.1) mg/dl Magnesium (1.8-2.4) mg/dl Total Bilirubin (0.2-1) mg/dl AST (15-37) U/L ALT (12-78) U/L Alkaline Phosphatase (45-117) U/L Total Protein (6.4-8.2) gm/dl Albumin (3.4-5.0) gm/dl Globulin (2.5-4.0) gm/dl Albumin/Globulin Ratio (0.9-2) Procalcitonin 0.56 H (0-0.5) ng/ml COVID-19 Eval Order Covid19 at [facility] SARS-CoV-2 (PCR) (Negative) 04/27/21 04/27/21 04/27/21 Range/Units 19:25 19:25 19:25 WBC 13.85 H (4.8-10.8) K/uL RBC 5.06 (4.7-6.1) M/uL Hgb 16.4 (14.0-18.0) g/dL Hct 46.5 (42-52) % MCV 91.9 (80-100) fL MCH 32.4 (25-34) pg MCHC 35.3 (32-36) g/dL RDW Std Deviation 43.0 (36.4-46.3) fL RDW Coeff of Michael 12.8 (11.5-14.5) % Plt Count 242 (130-400) K/uL MPV 11.1 H (7.4-10.4) fL Immature Gran % (Auto) 0.4 % Neut % (Auto) 75.3 % Lymph % (Auto) 12.5 % [place] % (Auto) 10.7 % Eos % (Auto) 1.0 % Baso % (Auto) 0.1 % Neut # (Auto) 10.42 H (1.4-6.5) K/uL Lymph # (Auto) 1.73 (1.2-3.4) K/uL [place] # (Auto) 1.48 H (0.11-0.59) K/uL Eos # (Auto) 0.14 (0-0.5) K/uL Baso # (Auto) 0.02 (0-0.2) K/uL Immature Gran # (Auto) 0.06 H (0.00-0.02) K/uL PT 9.8 (9.0-12.0) Seconds INR 1.0 (0.9-1.1) APTT 28.9 (21.0-31.0) Seconds PTT Ratio 1.1 Sodium 136 (136-145) mmol/L Potassium 4.3 (3.5-5.1) mmol/L Chloride 103 (98-107) mmol/L Carbon Dioxide 26 (21-32) mmol/L Anion Gap 7.0 (3-11) BUN 14 (7-18) mg/dl Creatinine 0.99 (0.6-1.4) mg/dl Est Cr Clr Drug Dosing 120.0 ml/min Est GFR ( Amer) 101.8 ml/min Est GFR (Non-Af Amer) 87.8 ml/min BUN/Creatinine Ratio 14.2 (10-20) Glucose 160 H (70-99) mg/dl Lactate (0.4-2.0) mmol/L Uric Acid 3.1 (2.6-7.2) mg/dl Calcium 9.4 (8.5-10.1) mg/dl Magnesium 2.3 (1.8-2.4) mg/dl Total Bilirubin 0.7 (0.2-1) mg/dl AST 13 L (15-37) U/L ALT 59 (12-78) U/L Alkaline Phosphatase 146 H (45-117) U/L Total Protein 8.0 (6.4-8.2) gm/dl Albumin 3.3 L (3.4-5.0) gm/dl Globulin 4.7 H (2.5-4.0) gm/dl Albumin/Globulin Ratio 0.7 L (0.9-2) Procalcitonin (0-0.5) ng/ml COVID-19 Eval Order SARS-CoV-2 (PCR) (Negative) PG Care Time/CCT Total # of Minutes Spent Total Time Spent with Patient: Total time spent is greater than 50% in coordination of care (as documented) at patient's floor/unit and/or counseling patient: Coding Level of Care Code 91305 Subseq Hosp Care Lvl 3 Diagnoses Cellulitis of left arm L03.114 Hypertension I10 Hyperlipidemia E78.5 Diabetes E11.9 Failure of outpatient treatment Z78.9 DVT prophylaxis Z29.9
[2021-04-28] MEDS ORDERED: DEXTROSE 50% 50 ML SYRINGE IV PRN (13:00)
[2021-04-28] MEDS ORDERED: GLUCOSE 10 TABS/TUBE PO PRN (13:00)
[2021-04-28] MEDS ORDERED: GLUCAGON FOR INJ 1 MG VIAL SQ PRN (13:00)
[2021-04-28] MEDS ORDERED: GLUCOSE 40% GEL 15 GM TUBE PO PRN (13:00)
[2021-04-28] MEDS ORDERED: CARBOHYDRATES FOR HYPOGLYCEMIA PO PRN (13:00)
--- NOTE | 2021-04-28 13:55 | Electrocardiogram Report ---
Test Reason : Blood Pressure : / mmHG Vent. Rate : 095 BPM Atrial Rate : 095 BPM P-R Int : 126 ms QRS Dur : 096 ms QT Int : 358 ms P-R-T Axes : 023 -14 013 degrees QTc Int : 449 ms Poor data quality, interpretation may be adversely affected Normal sinus rhythm Cannot rule out Anterior infarct , age undetermined Abnormal ECG No previous ECGs available Confirmed by Guzman Rdz ([id number]) on 04/28/2021 1:54:54 PM Referred By: REFERRED SELF Confirmed By:Yaron Rdz
[2021-04-28] MEDS ORDERED: OPTIRAY 320 100ml IV ONE (14:49)
--- NOTE | 2021-04-28 15:06 | CT Scan Report ---
CT elbow LT w con HISTORY: 50 years-old Male cellulitis left upper extremity,suspect abscess acute pain and swelling o f the left upper extremity and elbow. COMPARISON: Left upper radiographs 04/25/2021 TECHNIQUE: Multiple axial CT images of the left elbow were obtained following the intravenous adminis tration of 93 mL Optiray 320. A dose lowering technique was used consistent with the principals of BONITA ANDERSON. FINDINGS: Atherosclerotic plaque imaged arterial structures. There is moderate to marked dorsal subcutaneous ed steph of the elbow, distal upper arm and proximal forearm. There is a multilocular fluid attenuating coreas bcutaneous collection with peripheral and septal enhancement involving the dorsal elbow and proximal forearm. This demonstrates ill-defined margins and measures up to approximately 10.1 x 1.9 x 9.3 cm. 2 mm radiodense structure of the medial dorsal aspect of the upper arm on image 56 series 3. There is no acute fracture, dislocation or osseous erosion. 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 The tendons and ligaments of the elbow are not well evaluated by CT technique. Mildly e nlarged likely reactive epitrochlear 11 mm lymph node in the medial aspect of the distal upper arm, i mage 67. No large joint effusion. IMPRESSION: 1. Subcutaneous edema of the dorsal elbow, distal upper arm and proximal forearm suggestive of cellul itis. Multilocular complex fluid collection of the subcutaneous dorsal tissues measuring up to 10 cm is suggestive of an abscess. 2. No acute fracture or joint effusion. 3. 2 mm radiodensity of the subcutaneous tissues of the distal upper arm may reflect a small foreign body versus soft tissue calcification. ACT 112: Negative or not required by law. The above report was generated using voice recognition software. It may contain grammatical, syntax o r spelling errors. Electronically signed by: Abel York M.D. 04/28/2021 3:04 PM
--- NOTE | 2021-04-28 15:58 | Orthopedic Consultation ---
Date of Service April 28, 2021 Assessment & Plan (1) Septic olecranon bursitis of left elbow: I talked about the diagnosis and treatment options with him in at bedside. Given the amount of swelling in the size of the abscess, I do recommend open irrigation debridement of his left elbow. He would like to proceed. He understands the risk benefits alternatives procedure. Questions were answered at bedside today and the decision was made for surgery. I placed him on the OR schedule for tomorrow. He can continue the IV antibiotics throughout the night tonight. We will obtain cultures during the procedure. He will be n.p.o. past midnight tonight. History of Present Illness Reason for Consultation: Septic olecranon bursitis. Requesting Physician: . Attending Physician: Sarah Valdez MD Claudio is a pleasant 50-year-old male who was in his usual state of health until last weekend. He noticed some swelling of his left elbow. He went to [place] urgent care where they diagnosed him with olecranon bursitis and treated conservatively. He then became more concerned. He came to [facility] in the emergency room and he was diagnosed with a possible septic bursitis and given some oral antibiotics. Unfortunately his symptoms have worsened. He has significant erythema and redness down his left arm. He came back to [facility] and was admitted to the medical service. X-rays were negative but CT scan did show a large abscess. Orthopedics was consulted to evaluate and treat .. Allergies Allergy/AdvReac Type Severity Reaction Status Date / Time No Known Allergies Allergy Unverified 04/27/21 20:01 Home Medications Medication Instructions Recorded Confirmed Type cephalexin 500 mg capsule 500 mg PO Q6H 10 Days #40 cap 04/25/21 04/27/21 Rx empagliflozin 10 mg tablet 10 mg PO DAILY 04/25/21 04/27/21 History (Jardiance) metformin 1,000 mg tablet 1,000 mg PO BID 04/25/21 04/27/21 History rosuvastatin 10 mg tablet 10 mg PO HS 04/25/21 04/27/21 History sulfamethoxazole 800 1 tab PO Q12H 10 Days #20 tab 04/25/21 04/27/21 Rx mg-trimethoprim 160 mg tablet (Bactrim DS) valsartan 80 mg tablet 80 mg PO DAILY 04/25/21 04/27/21 History Past Med/Surg History Medical History Diabetes Hyperlipidemia Hypertension Social History Smoking Status: Never smoker Second Hand Exposure: No; Hx Alcohol Use: Yes Alcohol type: beer, wine and hard liquor Hx Substance Use: No Preferred Language: Sami Communication Ability: Effective Policy Director Required: No Beliefs That Will Affect Care: None Current Living Situation: Family Current Living Situation Comment: Son and daughter Other Information That Helps Us Care for You: No Feels Safe at Home: Yes Safety Concerns: Feels Safe At This Time Assistive Devices: None Review of Systems All systems reviewed & are unremarkable except as noted in HPI & below. Physical Exam On physical examination of the left elbow, he has decreased range of motion. He has severe swelling and pain around the olecranon bursa. He has erythema that extends from his upper arm all the way down to his wrist.. Constitutional WD/WN, vitals as above Eyes PERRL, conjunctivae normal, anicteric sclerae ENMT external ear and nose normal, oropharynx normal Neck trachea midline, no thyromegaly Respiratory normal respiratory effort Cardiovascular RRR, no murmur, no edema Gastrointestinal (Abdomen) normal bowel sounds, soft, nontender, no hepatosplenomegaly Psychiatric A+Ox3, euthymic affect Results & Data Results & Data Laboratory Results . Diagnostic Findings OlecranonCT scan of the left elbow was reviewed personally and shows a large abscess collection bursa.. PG Care Time/CCT Total # of Minutes Spent Total Time Spent with Patient: Total time spent is greater than 50% in coordination of care (as documented) at patient's floor/unit and/or counseling patient: Coding Level of Care Code 06653 Inpt Consult Level 4 (57 - DECISION FOR SURGERY) Diagnoses Septic olecranon bursitis of left elbow M71.122
--- NOTE | 2021-04-28 17:08 | Anesthesiology Consultation ---
Date of Service April 28, 2021 Assessment & Plan (1) Encounter for pre-operative examination: covid neg 04/27/21 Chart Review Chart Review: Acceptable Risk for Surgery and Patient NOT seen in Pre Admission Testing Consults Requested none History Surgery Operation Date: 04/29/21 11:10 Proposed Procedures p Incision and Drainage Left Septic Olecranon Bursitis - Claudio Choe DO Height/Weight Height: 6 ft 2 in Weight: 116.5 kg Allergies Allergy/AdvReac Type Severity Reaction Status Date / Time No Known Allergies Allergy Unverified 04/27/21 20:01 Medications Home Medications Medication Instructions Recorded Confirmed Last Taken cephalexin 500 mg capsule 500 mg PO Q6H 10 Days #40 cap 04/25/21 04/27/21 04/27/21 11:00 empagliflozin 10 mg tablet 10 mg PO DAILY 04/25/21 04/27/21 04/25/21 (Jardiance) metformin 1,000 mg tablet 1,000 mg PO BID 04/25/21 04/27/21 04/25/21 rosuvastatin 10 mg tablet 10 mg PO HS 04/25/21 04/27/21 04/24/21 sulfamethoxazole 800 1 tab PO Q12H 10 Days #20 tab 04/25/21 04/27/21 04/27/21 11:00 mg-trimethoprim 160 mg tablet (Bactrim DS) valsartan 80 mg tablet 80 mg PO DAILY 04/25/21 04/27/21 04/25/21 Active Medications Generic Name Dose Route Start Last Admin Trade Name Freq PRN Reason Stop Dose Admin Acetaminophen 650 mg 04/27/21 23:59 04/28/21 14:55 Acetaminophen 325 Mg Tab PO 05/27/21 23:58 650 mg Q4H PRN Administration pain/fever Vancomycin HCl 1,750 mg/ 535 mls @ 200 mls/hr 04/28/21 04:00 04/28/21 14:55 Sodium Chloride IV 05/05/21 03:59 200 mls/hr Q8H FITO Administration Protocol Ceftriaxone Sodium 2,000 mg/ 70 mls @ 100 mls/hr 04/28/21 09:00 04/28/21 08:34 Dextrose IV 05/05/21 08:59 Infused DAILY FITO Infusion Protocol Valsartan 80 mg 04/28/21 09:00 04/28/21 07:48 Valsartan 80 Mg Tab PO 05/28/21 08:59 80 mg DAILY FITO Administration Past Medical History Medical History Diabetes Hyperlipidemia Hypertension Social History Smoking Status: Never smoker Hx Alcohol Use: Yes Alcohol type: beer, wine and hard liquor alcohol intake frequency: holidays/special occasions only Hx Substance Use: No substance use type: does not use Physical Exam Vital Signs Last Vital Signs Temp 38 C H 04/28/21 15:00 Pulse 91 H 04/28/21 15:00 Resp 18 04/28/21 15:00 BP 130/82 04/28/21 15:00 Pulse Ox 91 04/28/21 15:00 Testing Laboratory Results 04/28/21 06:47 04/28/21 06:47 PT 9.8 Seconds (9.0-12.0) 04/27/21 19:25 INR 1.0 (0.9-1.1) 04/27/21 19:25 APTT 28.9 Seconds (21.0-31.0) 04/27/21 19:25 04/28/21 16:49 POC Glucose 139 H Electrocardiogram Date: 04/27/21 DICTATED BY: Guzman Rdz MD Test Reason : Blood Pressure : / mmHG Vent. Rate : 095 BPM Atrial Rate : 095 BPM P-R Int : 126 ms QRS Dur : 096 ms QT Int : 358 ms P-R-T Axes : 023 -14 013 degrees QTc Int : 449 ms Poor data quality, interpretation may be adversely affected Normal sinus rhythm Cannot rule out Anterior infarct , age undetermined Abnormal ECG No previous ECGs available Confirmed by Guzman Rdz ([id number]) on 04/28/2021 1:54:54 PM
[2021-04-28] MEDS: INSULIN ASPART 100 UNITS/ML 3 ML PEN SC SCH ×2 (17:39→21:27)
[2021-04-28] MEDS: ROSUVASTATIN CALCIUM 10 MG TAB PO SCH (20:32)
[2021-04-29] MEDS ORDERED: Nursing to Pharmacy Communication SCH (00:15)
[2021-04-29] MEDS: ACETAMINOPHEN 325 MG TAB PO PRN ×3 (00:23→11:45)
[2021-04-29] MEDS: VANCOMYCIN HCL 1,750 MG in SODIUM CHLORIDE 0.9% 500 ML IV SCH ×3 (05:40→17:23)
[2021-04-29] MEDS: INSULIN ASPART 100 UNITS/ML 3 ML PEN SC SCH ×4 (05:43→20:59)
[2021-04-29] MEDS: cefTRIAXone SODIUM 2,000 MG in DEXTROSE 5% 50 ML IV SCH (08:26)
[2021-04-29] MEDS: VALSARTAN 80 MG TAB PO SCH (08:27)
[2021-04-29 09:37] LABS: Mean Corpuscular Hgb Conc 34.2 g/dL (32-36); Mean Platelet Volume 10.6 fL (7.4-10.4); Platelet Count 272 K/uL (130-400)
[2021-04-29 10:05] LABS: Hematocrit (blood only) 44.7 % (42-52); Hemoglobin 15.3 g/dL (14.0-18.0); Mean Corpuscular Hemoglobin 31.7 pg (25-34); Mean Corpuscular Volume 92.5 fL (80-100); RDW Coefficient of Variation 12.8 % (11.5-14.5); RDW Standard Deviation 43.5 fL (36.4-46.3); Red Blood Count 4.83 M/uL (4.7-6.1); White Blood Count 14.46 K/uL (4.8-10.8)
[2021-04-29 10:06] LABS: ALC (manual) 1.91 K/uL (1.2-3.4); ANC (manual) 11.41 K/uL (1.4-6.5); Eosinophils # (manual) 0.13 K/uL (0-0.5); Eosinophils % (manual) 0.9 %; Lymphocytes # (manual) 1.91 K/uL (1.2-3.4); Lymphocytes % (manual) 13.2 %; Monocytes # (manual) 1.01 K/uL (0.11-0.59); Neutrophils # (manual) 11.41 K/uL (1.4-6.5); Neutrophils % (manual) 78.9 %
[2021-04-29 10:08] LABS: Albumin Level 2.8 gm/dl (3.4-5.0); BUN Creatinine Ratio 23.9 (10-20); Calcium 8.1 mg/dl (8.5-10.1); Creatinine Clr Calc Pharmacy 188.2 ml/min; Est GFR (African American) 132.2 ml/min; Est GFR (Non-African American) 114.1 ml/min; Potassium 4.1 mmol/L (3.5-5.1)
[2021-04-29 10:11] LABS: Albumin Globulin Ratio 0.7 (0.9-2); Bilirubin,Total 0.6 mg/dl (0.2-1); Globulin 4.3 gm/dl (2.5-4.0); Total Protein 7.1 gm/dl (6.4-8.2)
[2021-04-29 10:19] LABS: Estimated Average Glucose 160 mg/dl; Hemoglobin A1C 7.2 % (4.5-5.6)
[2021-04-29] MEDS ORDERED: VANCOMYCIN TROUGH ONE ×2 (11:30→13:30)
[2021-04-29] MEDS ORDERED: LIDOCAINE 2% 2 ML VIAL/AMP(20MG/ML) INFIL ONE (11:49)
[2021-04-29] MEDS ORDERED: ONDANSETRON INJ 2 MG/ML 2 ML VIAL ONE (11:49)
[2021-04-29] MEDS ORDERED: PROPOFOL IV EMULSION 10 MG/ML 20 ML VIAL IV ONE (11:49)
[2021-04-29] MEDS ORDERED: fentaNYL citrate 100 MCG/2 ML VIAL ONE ×2 (11:49→13:54)
--- NOTE | 2021-04-29 12:16 | History & Physical Bridge Note ---
Date of Service April 29, 2021 History & Physical Bridge Note I have examined the patient, reviewed the History & Physical and in the interval since the performance of the History & Physical I have noted the following changes of clinical significance: no changes noted
[2021-04-29] MEDS ORDERED: ATROPINE SULFATE 0.1 MG/ML 10ML SYR IV PRN (13:06)
[2021-04-29] MEDS ORDERED: LABETALOL HCL IV 5 MG/ML 20ML IV PRN (13:06)
[2021-04-29] MEDS ORDERED: ONDANSETRON INJ 2 MG/ML 2 ML VIAL IV PRN (13:06)
[2021-04-29] MEDS ORDERED: BUPIVACAINE/EPINEPHRINE 0.5% MPF 1:200,000 30 ML VIAL ONE (13:58)
--- NOTE | 2021-04-29 14:33 | Operative Report ---
PG Post Operative Report Pre & Post Diagnosis Operation Date: 04/29/21 11:10 Pre-Op Diagnosis: LEFT ELBOW SEPTIC BURSITIS Post-Op Diagnosis: LEFT ELBOW SEPTIC BURSITITS I identified the patient and participated in the time-out.: Yes Procedure Operation Date: 04/29/21 11:10 Actual Procedures p Incision and Drainage Left Septic Olecranon Bursitis(Left) - Claudio Choe DO Surgeon Claudio Choe DO Fur Scraper Claudio Colon PAC Estimated Blood Loss 20 Findings Consistent with Post-Op Diagnosis Specimens 2 cultures of the abscess Complications none Disposition Disposition: Recovery Room Indications Claudio is a 50-year-old male who began having elbow pain and swelling about a week ago. He went to the urgent care and then to the emergency room. He was placed on oral antibiotics and then was eventually admitted to the hospital. He had developed a very large septic olecranon bursitis. After discussions at bedside, we elected to proceed with an open irrigation debridement of the left elbow. Description of Procedure On April 29 Claudio was brought down from his hospital room to the preoperative holding area. The operative extremity identified and signed. He was taken back to operative room and laid on the table in supine position. He was put under general anesthesia. He was then put in the lateral decubitus position. The left elbow was prepped and draped in sterile fashion. A timeout was done. The patient and the operative extremity was properly identified. A longitudinal incision was made directly over the olecranon. Dissection was taken down to the bursa and the septic bursal abscess was opened. There was a very large amount of purulent discharge. 2 culture swabs were taken. Time was spent evacuating the entire abscess. Blunt finger dissection was done both proximally and distally to ensure that all abscess collections were decompressed. The wound was then irrigated with 2 L of normal saline solution with bulb syringe. Debridement was done of the surrounding soft tissues. Hemostasis was obtained. 1/4 inch [place] drain was placed. The incision was then closed with 3-0 nylon suture in a mattress fashion. He was then placed in a soft compressive dressing. He was then extubated and transferred to a hospital bed. He was taken to the postanesthesia care unit in stable condition. He tolerated the procedure well. Claudio Colon PA-C, was present for the entire procedure. He was critical for patient positioning, prepping, draping, retraction exposure, wound closure and application of sterile dressing. I attest to the content of the Intraoperative Record and any orders documented therein. Any exceptions are noted below.
[2021-04-29] MEDS: fentaNYL citrate 100 MCG/2 ML VIAL IV PRN ×4 (14:45→15:00)
[2021-04-29] MEDS ORDERED: oxyCODONE HCL IR 5 MG TAB (IMMEDIATE RELEASE) PO PRN (15:31)
--- NOTE | 2021-04-29 15:37 | Anesthesiology Progress Note ---
Date of Service April 29, 2021 Anesthesia Post Procedure Vital Signs Vital Signs: Temp Pulse Pulse Resp BP Pulse Ox 04/29/21 15:32 36.9 C 80 18 138/89 97 04/29/21 15:20 85 20 143/86 H 94 04/29/21 15:10 37.0 C 82 18 141/80 H 96 04/29/21 15:00 87 18 157/97 H 94 04/29/21 14:50 88 22 141/95 H 96 04/29/21 14:37 36.3 C L 90 12 143/80 H 95 04/29/21 12:33 37.4 C 102 H 18 156/87 H 97 04/29/21 07:24 36.8 C 90 16 120/77 94 04/28/21 22:45 37.2 C 85 20 125/70 96 Pain Intensity Left Arm: Pain Intensity: 8 Left Elbow: Pain Intensity: 5 Transfer of Care Handoff Completed per policy Notes Mental Status: alert / awake / arousable Patient Amnestic to Procedure: Yes Nausea / Vomiting: adequately controlled Pain: adequately controlled Airway Patency, RR, SpO2: stable & adequate BP & HR: stable & adequate Hydration State: stable & adequate Anesthetic Complications: no major complications apparent
--- NOTE | 2021-04-29 16:30 | Hospitalist Progress Note ---
Date of Service April 29, 2021 Assessment & Plan (1) Cellulitis of left arm: Plan: Cellulitis of left arm/failure of outpatient treatment- With significant fluctuance over left elbow with small scab centrally, ++erythema from wrist up to axilla over majority of LUE, decreased ROM 10-90 degrees left elbow, +TTP and warmth Leukocytosis worse, afebrile here, BCxs NGTD With septic olecranon bursitis and surrounding cellulitis No h/o MRSA or frequent skin infections but does have DMII Uric acid normal and do not suspect gout CT elbow with multilocular complex fluid collection of the subcutaneous dorsal tissues measuring up to 10 cm is suggestive of an abscess. -consult Ortho appreciated--> now s/p I&D on 04/29, [place] drain in place -Continue vancomycin IV and ceftriaxone IV -follow CBC -follow Wound cxs, BCxs -pain control (2) Hypertension: Plan: BPs controlled Continue valsartan (3) Hyperlipidemia: Plan: Continue rosuvastatin 10 mg in the evening (4) Diabetes: Plan: Hold Jardiance and Metformin continue SSI today, accuchecks hemoglobin A1c well controlled at 7.2% (5) Failure of outpatient treatment: Plan: Outpatient antibiotics Keflex and Bactrim are being held, in favor of inpatient IV vancomycin and ceftriaxone (6) DVT prophylaxis: Plan: SCDs, add Lovenox now that he is post-op Dispo-continued stay Admission and Anticipated Discharge Date Admission Date: April 27, 2021 Subjective Pt recently returned from his I&D of the left elbow today and is feeling much better. Is happy that things are finally going to get better.No CP or SOB, no nausea. He ate lunch after the surgery. Review of Systems Review of Systems: All systems reviewed & are unremarkable except as noted in HPI & below Physical Exam Constitutional: WD/WN, vitals as above Eyes: + anicteric sclerae Neck: trachea midline, no thyromegaly Respiratory: normal respiratory effort, lungs clear to auscultation Cardiovascular: RRR, no murmur, no edema Chest (Breasts): Chest: normal inspection of chest Gastrointestinal (Abdomen): normal bowel sounds, soft, nontender, no hepatosplenomegaly Musculoskeletal: Extremities: + extremities abnormal to inspection (LUE in bulky dressing), no cyanosis and no clubbing Skin: no rashes, warm and dry Neurologic: moves all extremities and awake; no focal motor deficits Psychiatric: A+Ox3, euthymic affect Lymphatic: no lymphedema Results & Data Results & Data ([facility]) Vital Signs (Past 12 Hours) Vital Signs Temp Pulse Pulse Resp BP Pulse Ox 04/29/21 16:00 36.6 C 88 20 137/87 95 04/29/21 15:32 36.9 C 80 18 138/89 97 04/29/21 15:20 85 20 143/86 H 94 04/29/21 15:10 37.0 C 82 18 141/80 H 96 04/29/21 15:00 87 18 157/97 H 94 04/29/21 14:50 88 22 141/95 H 96 04/29/21 14:37 36.3 C L 90 12 143/80 H 95 04/29/21 12:33 37.4 C 102 H 18 156/87 H 97 04/29/21 07:24 36.8 C 90 16 120/77 94 Laboratory Results 04/29/21 04/29/21 04/29/21 Range/Units 14:39 12:11 08:53 WBC (4.8-10.8) K/uL RBC (4.7-6.1) M/uL Hgb (14.0-18.0) g/dL Hct (42-52) % MCV (80-100) fL MCH (25-34) pg MCHC (32-36) g/dL RDW Std Deviation (36.4-46.3) fL RDW Coeff of Michael (11.5-14.5) % Plt Count (130-400) K/uL MPV (7.4-10.4) fL Neutrophils % (Manual) % Lymphocytes % (Manual) % Monocytes % (Manual) % Eosinophils % (Manual) % Neutrophils # (Manual) (1.4-6.5) K/uL Total Absolute Neuts (1.4-6.5) K/uL Lymphocytes # (Manual) (1.2-3.4) K/uL Total Abs Lymphocytes (1.2-3.4) K/uL Monocytes # (Manual) (0.11-0.59) K/uL Eosinophils # (Manual) (0-0.5) K/uL Sodium (136-145) mmol/L Potassium (3.5-5.1) mmol/L Chloride (98-107) mmol/L Carbon Dioxide (21-32) mmol/L Anion Gap (3-11) BUN (7-18) mg/dl Creatinine (0.6-1.4) mg/dl Est Cr Clr Drug Dosing ml/min Est GFR ( Amer) ml/min Est GFR (Non-Af Amer) ml/min BUN/Creatinine Ratio (10-20) Glucose (70-99) mg/dl POC Glucose 104 H 120 H (70-99) mg/dl Estimat Average Glucose 160 mg/dl Hemoglobin A1c 7.2 H (4.5-5.6) % Calcium (8.5-10.1) mg/dl Total Bilirubin (0.2-1) mg/dl AST (15-37) U/L ALT (12-78) U/L Alkaline Phosphatase (45-117) U/L Total Protein (6.4-8.2) gm/dl Albumin (3.4-5.0) gm/dl Globulin (2.5-4.0) gm/dl Albumin/Globulin Ratio (0.9-2) 04/29/21 04/29/21 04/29/21 Range/Units 08:53 08:53 05:42 WBC 14.46 H (4.8-10.8) K/uL RBC 4.83 (4.7-6.1) M/uL Hgb 15.3 (14.0-18.0) g/dL Hct 44.7 (42-52) % MCV 92.5 (80-100) fL MCH 31.7 (25-34) pg MCHC 34.2 (32-36) g/dL RDW Std Deviation 43.5 (36.4-46.3) fL RDW Coeff of Michael 12.8 (11.5-14.5) % Plt Count 272 (130-400) K/uL MPV 10.6 H (7.4-10.4) fL Neutrophils % (Manual) 78.9 % Lymphocytes % (Manual) 13.2 % Monocytes % (Manual) 7.0 % Eosinophils % (Manual) 0.9 % Neutrophils # (Manual) 11.41 H (1.4-6.5) K/uL Total Absolute Neuts 11.41 H (1.4-6.5) K/uL Lymphocytes # (Manual) 1.91 (1.2-3.4) K/uL Total Abs Lymphocytes 1.91 (1.2-3.4) K/uL Monocytes # (Manual) 1.01 H (0.11-0.59) K/uL Eosinophils # (Manual) 0.13 (0-0.5) K/uL Sodium 136 (136-145) mmol/L Potassium 4.1 (3.5-5.1) mmol/L Chloride 105 (98-107) mmol/L Carbon Dioxide 21 (21-32) mmol/L Anion Gap 10.0 (3-11) BUN 15 (7-18) mg/dl Creatinine 0.63 (0.6-1.4) mg/dl Est Cr Clr Drug Dosing 188.2 ml/min Est GFR ( Amer) 132.2 ml/min Est GFR (Non-Af Amer) 114.1 ml/min BUN/Creatinine Ratio 23.9 H (10-20) Glucose 124 H (70-99) mg/dl POC Glucose 123 H (70-99) mg/dl Estimat Average Glucose mg/dl Hemoglobin A1c (4.5-5.6) % Calcium 8.1 L (8.5-10.1) mg/dl Total Bilirubin 0.6 (0.2-1) mg/dl AST 13 L (15-37) U/L ALT 34 (12-78) U/L Alkaline Phosphatase 131 H (45-117) U/L Total Protein 7.1 (6.4-8.2) gm/dl Albumin 2.8 L (3.4-5.0) gm/dl Globulin 4.3 H (2.5-4.0) gm/dl Albumin/Globulin Ratio 0.7 L (0.9-2) 04/28/21 04/28/21 Range/Units 20:56 16:49 WBC (4.8-10.8) K/uL RBC (4.7-6.1) M/uL Hgb (14.0-18.0) g/dL Hct (42-52) % MCV (80-100) fL MCH (25-34) pg MCHC (32-36) g/dL RDW Std Deviation (36.4-46.3) fL RDW Coeff of Michael (11.5-14.5) % Plt Count (130-400) K/uL MPV (7.4-10.4) fL Neutrophils % (Manual) % Lymphocytes % (Manual) % Monocytes % (Manual) % Eosinophils % (Manual) % Neutrophils # (Manual) (1.4-6.5) K/uL Total Absolute Neuts (1.4-6.5) K/uL Lymphocytes # (Manual) (1.2-3.4) K/uL Total Abs Lymphocytes (1.2-3.4) K/uL Monocytes # (Manual) (0.11-0.59) K/uL Eosinophils # (Manual) (0-0.5) K/uL Sodium (136-145) mmol/L Potassium (3.5-5.1) mmol/L Chloride (98-107) mmol/L Carbon Dioxide (21-32) mmol/L Anion Gap (3-11) BUN (7-18) mg/dl Creatinine (0.6-1.4) mg/dl Est Cr Clr Drug Dosing ml/min Est GFR ( Amer) ml/min Est GFR (Non-Af Amer) ml/min BUN/Creatinine Ratio (10-20) Glucose (70-99) mg/dl POC Glucose 153 H 139 H (70-99) mg/dl Estimat Average Glucose mg/dl Hemoglobin A1c (4.5-5.6) % Calcium (8.5-10.1) mg/dl Total Bilirubin (0.2-1) mg/dl AST (15-37) U/L ALT (12-78) U/L Alkaline Phosphatase (45-117) U/L Total Protein (6.4-8.2) gm/dl Albumin (3.4-5.0) gm/dl Globulin (2.5-4.0) gm/dl Albumin/Globulin Ratio (0.9-2) Diagnostic Findings CT elbow LT w con HISTORY: 50 years-old Male cellulitis left upper extremity,suspect abscess acute pain and swelling of the left upper extremity and elbow. COMPARISON: Left upper radiographs 04/25/2021 TECHNIQUE: Multiple axial CT images of the left elbow were obtained following th e intravenous administration of 93 mL Optiray 320. A dose lowering technique was used consistent with the principals of CAMMY. FINDINGS: Atherosclerotic plaque imaged arterial structures. There is moderate to marked dorsal subcutaneous edema of the elbow, distal upper arm and proximal forearm. There is a multilocular fluid attenuating subcutaneous collection with peripheral and septal enhancement involving the dorsal elbow and proximal forearm. This demonstrates ill-defined margins and measures up to approximately 10.1 x 1.9 x 9.3 cm. 2 mm radiodense structure of the medial dorsal aspect of t he upper arm on image 56 series 3. There is no acute fracture, dislocation or osseous erosion. 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 The tendons and ligaments of the elbow are not well evaluated by CT technique. Mildly enlarged likely reactive epitrochlear 11 mm lymph node in the medial aspect of the distal upper arm, image 67. No large joint effusion. IMPRESSION: 1. Subcutaneous edema of the dorsal elbow, distal upper arm and proximal forearm suggestive of cellulitis. Multilocular complex fluid collection of the subcutaneous dorsal tissues measuring up to 10 cm is suggestive of an abscess. 2. No acute fracture or joint effusion. 3. 2 mm radiodensity of the subcutaneous tissues of the distal upper arm may reflect a small foreign body versus soft tissue calcification. PG Care Time/CCT Total # of Minutes Spent Total Time Spent with Patient: Total time spent is greater than 50% in coordination of care (as documented) at patient's floor/unit and/or counseling patient: Coding Level of Care Code 30295 Subseq Hosp Care Lvl 2 Diagnoses Cellulitis of left arm L03.114 Hypertension I10 Hyperlipidemia E78.5 Diabetes E11.9 Failure of outpatient treatment Z78.9 DVT prophylaxis Z29.9
[2021-04-29] MEDS ORDERED: GLUCOSE 10 TABS/TUBE PO PRN (16:32)
[2021-04-29] MEDS ORDERED: GLUCAGON FOR INJ 1 MG VIAL SQ PRN (16:32)
[2021-04-29] MEDS ORDERED: GLUCOSE 40% GEL 15 GM TUBE PO PRN (16:32)
[2021-04-29] MEDS ORDERED: CARBOHYDRATES FOR HYPOGLYCEMIA PO PRN (16:32)
[2021-04-29] MEDS ORDERED: DEXTROSE 50% 50 ML SYRINGE IV PRN (16:32)
[2021-04-29] MEDS ORDERED: VANCOMYCIN CONSULT ACTIVE PRN (16:35)
[2021-04-29] MEDS ORDERED: cephALEXin 500 MG CAP PO SCH (17:00)
[2021-04-29] MEDS: ACETAMINOPHEN 500 MG TAB PO PRN ×2 (17:31→23:52)
[2021-04-29] MEDS: ROSUVASTATIN CALCIUM 10 MG TAB PO SCH (20:12)
[2021-04-29] MEDS ORDERED: metFORMIN HCL 500 MG TAB PO SCH (21:00)
[2021-04-29] MEDS ORDERED: SULFAMETHOXAZOLE/TRIMETHOPRIM DS 800/160MG TAB PO SCH (21:00)
[2021-04-30 06:05] LABS: Basophils # (auto) 0.03 K/uL (0-0.2); Basophils % (auto) 0.3 %; Eosinophils # (auto) 0.31 K/uL (0-0.5); Eosinophils % (auto) 2.7 %; Hematocrit (blood only) 44.7 % (42-52); Hemoglobin 15.2 g/dL (14.0-18.0); Immature Granulocytes # (auto) 0.17 K/uL (0.00-0.02); Immature Granulocytes % (auto) 1.5 %; Lymphocytes # (auto) 1.76 K/uL (1.2-3.4); Lymphocytes % (auto) 15.3 %; Mean Corpuscular Hemoglobin 31.5 pg (25-34); Mean Corpuscular Volume 92.5 fL (80-100); Mean Platelet Volume 10.3 fL (7.4-10.4); Monocytes # (auto) 1.18 K/uL (0.11-0.59); Monocytes % (auto) 10.3 %; Neutrophils # (auto) 8.03 K/uL (1.4-6.5); Neutrophils % (auto) 69.9 %; Platelet Count 311 K/uL (130-400); RDW Coefficient of Variation 12.9 % (11.5-14.5); RDW Standard Deviation 44.1 fL (36.4-46.3); Red Blood Count 4.83 M/uL (4.7-6.1); White Blood Count 11.48 K/uL (4.8-10.8)
[2021-04-30 06:39] LABS: Albumin Level 2.8 gm/dl (3.4-5.0); Calcium 8.4 mg/dl (8.5-10.1); Est GFR (African American) 125.9 ml/min; Est GFR (Non-African American) 108.6 ml/min; Potassium 4.1 mmol/L (3.5-5.1)
[2021-04-30 06:41] LABS: Albumin Globulin Ratio 0.7 (0.9-2); Bilirubin,Total 0.5 mg/dl (0.2-1); Globulin 4.2 gm/dl (2.5-4.0)
[2021-04-30] MEDS: ACETAMINOPHEN 500 MG TAB PO PRN (07:39)
--- NOTE | 2021-04-30 08:05 | Orthopedic Progress Note ---
Date of Service April 30, 2021 Assessment & Plan (1) Septic olecranon bursitis of left elbow: Overall he is doing fairly well. He is currently on ceftriaxone and vancomycin IV. He is on Lovenox for DVT prophylaxis. His blood cultures have been negative and his current Gram stain shows many white blood cells but no organisms. It is important he stays on the IV antibiotics for now. We will await to see the final cultures and sensitivities before we consider discharge. I will change the dressing and pulled the drain of his left elbow likely on Sunday. Farooq Snyder was seen and examined at bedside this morning. Overall is doing fairly well. He says his elbow feels much better since the abscess was drained. He is not having too much pain. He is on IV antibiotics. He has no complaints.. Review of Systems All systems reviewed & are unremarkable except as noted in HPI & below. Physical Exam On physical examination of the left elbow, the dressing is clean and dry. The erythema on his forearm seems a little bit less. He has active motion of his elbow and his wrist without much pain.. Results & Data Results & Data Laboratory Results . Diagnostic Findings . PG Care Time/CCT Total # of Minutes Spent Total Time Spent with Patient: Total time spent is greater than 50% in coordination of care (as documented) at patient's floor/unit and/or counseling patient: Coding Level of Care Code 81772 Post Operative Follow-Up Diagnoses Septic olecranon bursitis of left elbow M71.122
[2021-04-30] MEDS: cefTRIAXone SODIUM 2,000 MG in DEXTROSE 5% 50 ML IV SCH (08:51)
[2021-04-30] MEDS: INSULIN ASPART 100 UNITS/ML 3 ML PEN SC SCH ×4 (08:59→20:36)
--- NOTE | 2021-04-30 09:30 | Pharmacy Report ---
Pharmacy Abx Dose Short Note - Date of Service April 30, 2021 - Assessment & Plan Assessment 50 year old M receiving vancomycin and ceftriaxone IV for treatment of L elbow septic bursitis. He is s/p I&D of the left elbow 04/29. Blood cultures - NGTD. L elbow cultures pending. Renal function remains stable. Day # 4 of antimicrobial therapy. Plan Vancomycin * Trough level of 12 mcg/mL was drawn late yesterday and is ~ an 11hr level. Estimated true trough ~18 mcg/mL. * Continue dose of 1750 mg IV every 8 hours * Goal trough level for septic bursitis: 15-20 mcg/mL * Trough or random level ordered for: 7 AM Pharmacy will continue to follow and will adjust dose/frequency as necessary. Thank you.
[2021-04-30] MEDS: VANCOMYCIN HCL 1,750 MG in SODIUM CHLORIDE 0.9% 500 ML IV SCH ×3 (09:44→17:42)
[2021-04-30] MEDS: ENOXAPARIN INJ 40 MG/0.4 ML SYR SQ SCH (09:48)
[2021-04-30] MEDS: VALSARTAN 80 MG TAB PO SCH (09:48)
--- NOTE | 2021-04-30 12:20 | Hospitalist Progress Note ---
Date of Service April 30, 2021 Assessment & Plan (1) Cellulitis of left arm: Plan: Cellulitis of left arm/failure of outpatient treatment- With significant fluctuance over left elbow with small scab centrally, ++erythema from wrist up to axilla over majority of LUE, decreased ROM 10-90 degrees left elbow, +TTP and warmth CT elbow with multilocular complex fluid collection of the subcutaneous dorsal tissues measuring up to 10 cm is suggestive of an abscess. With septic olecranon bursitis and surrounding cellulitis No h/o MRSA or frequent skin infections but does have DMII Leukocytosis now improving s/p surgery, remains afebrile here BCxs remain NGTD Wound cultures from I&D Gram stain no orgs, cx pending Doing very well now -consult Ortho appreciated--> now s/p I&D on 04/29, [place] drain in place -Continue vancomycin IV and ceftriaxone IV -follow CBC -follow Wound cxs, BCxs -pain control (2) Hypertension: Plan: BPs controlled Continue valsartan (3) Hyperlipidemia: Plan: Continue rosuvastatin 10 mg in the evening (4) Diabetes: Plan: Hold Jardiance and Metformin continue SSI today, accuchecks hemoglobin A1c well controlled at 7.2% (5) Failure of outpatient treatment: Plan: Outpatient antibiotics Keflex and Bactrim are being held, in favor of inpatient IV vancomycin and ceftriaxone (6) DVT prophylaxis: Plan: SCDs, Lovenox Dispo-continued stay Admission and Anticipated Discharge Date Admission Date: April 27, 2021 Subjective Feeling very well. Minimal pain in arm. Is very grateful for having surgery. Denies CP, SOB, nausea, no abd pain, no diarrhea or constipation. Review of Systems Review of Systems: All systems reviewed & are unremarkable except as noted in HPI & below Physical Exam Constitutional: WD/WN, vitals as above Eyes: + anicteric sclerae Neck: trachea midline, no thyromegaly Respiratory: normal respiratory effort, lungs clear to auscultation Cardiovascular: RRR, no murmur, no edema Chest (Breasts): Chest: normal inspection of chest Gastrointestinal (Abdomen): normal bowel sounds, soft, nontender, no hepatosplenomegaly Musculoskeletal: Extremities: + extremities abnormal to inspection (LUE in bulky dressing), no cyanosis and no clubbing Skin: no rashes, warm and dry Neurologic: moves all extremities and awake; no focal motor deficits Psychiatric: A+Ox3, euthymic affect Lymphatic: no lymphedema Results & Data Results & Data ([facility]) Vital Signs (Past 12 Hours) Vital Signs Temp Pulse Resp BP Pulse Ox 04/30/21 11:26 36.9 C 82 16 137/86 94 04/30/21 07:48 36.9 C 84 18 123/80 93 04/30/21 03:13 36.6 C 70 20 132/83 94 Laboratory Results 04/30/21 04/30/21 04/30/21 Range/Units 08:17 05:31 05:31 WBC 11.48 H (4.8-10.8) K/uL RBC 4.83 (4.7-6.1) M/uL Hgb 15.2 (14.0-18.0) g/dL Hct 44.7 (42-52) % MCV 92.5 (80-100) fL MCH 31.5 (25-34) pg MCHC 34.0 (32-36) g/dL RDW Std Deviation 44.1 (36.4-46.3) fL RDW Coeff of Michael 12.9 (11.5-14.5) % Plt Count 311 (130-400) K/uL MPV 10.3 (7.4-10.4) fL Immature Gran % (Auto) 1.5 % Neut % (Auto) 69.9 % Lymph % (Auto) 15.3 % Whitman % (Auto) 10.3 % Eos % (Auto) 2.7 % Baso % (Auto) 0.3 % Neut # (Auto) 8.03 H (1.4-6.5) K/uL Lymph # (Auto) 1.76 (1.2-3.4) K/uL Whitman # (Auto) 1.18 H (0.11-0.59) K/uL Eos # (Auto) 0.31 (0-0.5) K/uL Baso # (Auto) 0.03 (0-0.2) K/uL Immature Gran # (Auto) 0.17 H (0.00-0.02) K/uL Sodium 135 L (136-145) mmol/L Potassium 4.1 (3.5-5.1) mmol/L Chloride 104 (98-107) mmol/L Carbon Dioxide 27 (21-32) mmol/L Anion Gap 4.0 (3-11) BUN 14 (7-18) mg/dl Creatinine 0.71 (0.6-1.4) mg/dl Est Cr Clr Drug Dosing 167.0 ml/min Est GFR ( Amer) 125.9 ml/min Est GFR (Non-Af Amer) 108.6 ml/min BUN/Creatinine Ratio 19.0 (10-20) Glucose 147 H (70-99) mg/dl POC Glucose 162 H (70-99) mg/dl Calcium 8.4 L (8.5-10.1) mg/dl Total Bilirubin 0.5 (0.2-1) mg/dl AST 18 (15-37) U/L ALT 37 (12-78) U/L Alkaline Phosphatase 141 H (45-117) U/L Total Protein 7.0 (6.4-8.2) gm/dl Albumin 2.8 L (3.4-5.0) gm/dl Globulin 4.2 H (2.5-4.0) gm/dl Albumin/Globulin Ratio 0.7 L (0.9-2) Vancomycin Trough (See Comment) mcg/ml 04/29/21 04/29/21 04/29/21 Range/Units 20:47 17:13 16:48 WBC (4.8-10.8) K/uL RBC (4.7-6.1) M/uL Hgb (14.0-18.0) g/dL Hct (42-52) % MCV (80-100) fL MCH (25-34) pg MCHC (32-36) g/dL RDW Std Deviation (36.4-46.3) fL RDW Coeff of Michael (11.5-14.5) % Plt Count (130-400) K/uL MPV (7.4-10.4) fL Immature Gran % (Auto) % Neut % (Auto) % Lymph % (Auto) % Whitman % (Auto) % Eos % (Auto) % Baso % (Auto) % Neut # (Auto) (1.4-6.5) K/uL Lymph # (Auto) (1.2-3.4) K/uL Whitman # (Auto) (0.11-0.59) K/uL Eos # (Auto) (0-0.5) K/uL Baso # (Auto) (0-0.2) K/uL Immature Gran # (Auto) (0.00-0.02) K/uL Sodium (136-145) mmol/L Potassium (3.5-5.1) mmol/L Chloride (98-107) mmol/L Carbon Dioxide (21-32) mmol/L Anion Gap (3-11) BUN (7-18) mg/dl Creatinine (0.6-1.4) mg/dl Est Cr Clr Drug Dosing ml/min Est GFR ( Amer) ml/min Est GFR (Non-Af Amer) ml/min BUN/Creatinine Ratio (10-20) Glucose (70-99) mg/dl POC Glucose 173 H 195 H (70-99) mg/dl Calcium (8.5-10.1) mg/dl Total Bilirubin (0.2-1) mg/dl AST (15-37) U/L ALT (12-78) U/L Alkaline Phosphatase (45-117) U/L Total Protein (6.4-8.2) gm/dl Albumin (3.4-5.0) gm/dl Globulin (2.5-4.0) gm/dl Albumin/Globulin Ratio (0.9-2) Vancomycin Trough 12.0 (See Comment) mcg/ml 04/29/21 Range/Units 14:39 WBC (4.8-10.8) K/uL RBC (4.7-6.1) M/uL Hgb (14.0-18.0) g/dL Hct (42-52) % MCV (80-100) fL MCH (25-34) pg MCHC (32-36) g/dL RDW Std Deviation (36.4-46.3) fL RDW Coeff of Michael (11.5-14.5) % Plt Count (130-400) K/uL MPV (7.4-10.4) fL Immature Gran % (Auto) % Neut % (Auto) % Lymph % (Auto) % Whitman % (Auto) % Eos % (Auto) % Baso % (Auto) % Neut # (Auto) (1.4-6.5) K/uL Lymph # (Auto) (1.2-3.4) K/uL Whitman # (Auto) (0.11-0.59) K/uL Eos # (Auto) (0-0.5) K/uL Baso # (Auto) (0-0.2) K/uL Immature Gran # (Auto) (0.00-0.02) K/uL Sodium (136-145) mmol/L Potassium (3.5-5.1) mmol/L Chloride (98-107) mmol/L Carbon Dioxide (21-32) mmol/L Anion Gap (3-11) BUN (7-18) mg/dl Creatinine (0.6-1.4) mg/dl Est Cr Clr Drug Dosing ml/min Est GFR ( Amer) ml/min Est GFR (Non-Af Amer) ml/min BUN/Creatinine Ratio (10-20) Glucose (70-99) mg/dl POC Glucose 104 H (70-99) mg/dl Calcium (8.5-10.1) mg/dl Total Bilirubin (0.2-1) mg/dl AST (15-37) U/L ALT (12-78) U/L Alkaline Phosphatase (45-117) U/L Total Protein (6.4-8.2) gm/dl Albumin (3.4-5.0) gm/dl Globulin (2.5-4.0) gm/dl Albumin/Globulin Ratio (0.9-2) Vancomycin Trough (See Comment) mcg/ml PG Care Time/CCT Total # of Minutes Spent Total Time Spent with Patient: Total time spent is greater than 50% in coordination of care (as documented) at patient's floor/unit and/or counseling patient: Coding Level of Care Code 15864 Subseq Hosp Care Lvl 2 Diagnoses Cellulitis of left arm L03.114 Hypertension I10 Hyperlipidemia E78.5 Diabetes E11.9 Failure of outpatient treatment Z78.9 DVT prophylaxis Z29.9
[2021-04-30] MEDS: ROSUVASTATIN CALCIUM 10 MG TAB PO SCH (20:33)
[2021-05-01] MEDS: VANCOMYCIN HCL 1,750 MG in SODIUM CHLORIDE 0.9% 500 ML IV SCH ×2 (00:25→09:55)
--- NOTE | 2021-05-01 06:50 | Orthopedic Progress Note ---
Date of Service May 01, 2021 Assessment & Plan (1) Septic olecranon bursitis of left elbow: Overall he is doing fairly well. He is currently on ceftriaxone and vancomycin IV. The cultures have grown out a staph species but we are still awaiting sensitivities. He will stay on the IV antibiotics that the day today. I will see him tomorrow morning and remove the dressing and pull out the [place] drain. Hopefully we can have sensitivities back by tomorrow. Farooq Snyder was seen and examined at bedside this morning. Overall is doing well. Is not any pain in the elbow. He is keeping the elbow elevated. He has no complaints.. Review of Systems All systems reviewed & are unremarkable except as noted in HPI & below. Physical Exam On physical examination of the left elbow, the dressing is clean and dry. He has good motion of his elbow and a little bit of swelling of his hand.. Results & Data Results & Data Laboratory Results . Diagnostic Findings . PG Care Time/CCT Total # of Minutes Spent Total Time Spent with Patient: Total time spent is greater than 50% in coordi nation of care (as documented) at patient's floor/unit and/or counseling patient: Coding Level of Care Code 00261 Post Operative Follow-Up Diagnoses Septic olecranon bursitis of left elbow M71.122
[2021-05-01] MEDS ORDERED: VANCOMYCIN TROUGH ONE (08:30)
[2021-05-01 08:43] LABS: Basophils # (auto) 0.05 K/uL (0-0.2); Basophils % (auto) 0.5 %; Eosinophils # (auto) 0.29 K/uL (0-0.5); Eosinophils % (auto) 2.9 %; Hematocrit (blood only) 46.5 % (42-52); Hemoglobin 16.2 g/dL (14.0-18.0); Immature Granulocytes # (auto) 0.28 K/uL (0.00-0.02); Immature Granulocytes % (auto) 2.8 %; Lymphocytes # (auto) 1.79 K/uL (1.2-3.4); Mean Corpuscular Hemoglobin 32.4 pg (25-34); Mean Corpuscular Hgb Conc 34.8 g/dL (32-36); Mean Platelet Volume 9.9 fL (7.4-10.4); Monocytes # (auto) 1.04 K/uL (0.11-0.59); Monocytes % (auto) 10.5 %; Neutrophils % (auto) 65.3 %; Platelet Count 384 K/uL (130-400); RDW Coefficient of Variation 12.7 % (11.5-14.5); RDW Standard Deviation 43.4 fL (36.4-46.3); White Blood Count 9.95 K/uL (4.8-10.8)
[2021-05-01 09:16] LABS: BUN Creatinine Ratio 14.2 (10-20); Calcium 8.9 mg/dl (8.5-10.1); Est GFR (African American) 121.8 ml/min; Est GFR (Non-African American) 105.1 ml/min; Potassium 4.1 mmol/L (3.5-5.1)
[2021-05-01] MEDS: VALSARTAN 80 MG TAB PO SCH (09:35)
[2021-05-01] MEDS: ENOXAPARIN INJ 40 MG/0.4 ML SYR SQ SCH (09:35)
[2021-05-01] MEDS: INSULIN ASPART 100 UNITS/ML 3 ML PEN SC SCH ×4 (09:39→22:33)
[2021-05-01] MEDS: cefTRIAXone SODIUM 2,000 MG in DEXTROSE 5% 50 ML IV SCH (09:44)
--- NOTE | 2021-05-01 11:45 | Hospitalist Progress Note ---
Date of Service May 01, 2021 Assessment & Plan (1) Cellulitis of left arm: Plan: Cellulitis of left arm/failure of outpatient treatment- Upon admission with significant fluctuance over left elbow with small scab centrally, ++erythema from wrist up to axilla over majority of LUE, decreased ROM 10-90 degrees left elbow, +TTP and warmth CT elbow with multilocular complex fluid collection of the subcutaneous dorsal tissues measuring up to 10 cm is suggestive of an abscess. With septic olecranon bursitis and surrounding cellulitis No h/o MRSA or frequent skin infections but does have DMII now s/p I&D on 04/29, Wicho drain in place Leukocytosis now improving s/p surgery, remains afebrile here BCxs remain NGTD Wound cultures from I&D Gram stain Now with MSSA Doing very well now, Dressing remains in place as does [place] drain-orthopedics plans to remove these likely on Sunday -consult Ortho appreciated -Continue ceftriaxone IV, But can discontinue vancomycin today -follow CBC -follow BCxs -pain control As needed -After removal of drain and if okay from orthopedic standpoint, could discharge to home on Sunday with either oral Bactrim or oral doxycycline (2) Hypertension: Plan: BPs controlled Continue valsartan (3) Hyperlipidemia: Plan: Continue rosuvastatin 10 mg in the evening (4) Diabetes: Plan: Hold Jardiance and Metformin Having some intermittent mild hyperglycemia here continue SSI But increase/add on carbohydrate coverage with meals,Continue accuchecks hemoglobin A1c well controlled at 7.2% (5) Failure of outpatient treatment: Plan: Outpatient antibiotics Keflex and Bactrim are being held, in favor of inpatient IV vancomycin and ceftriaxone -Outpatient antibiotics with either Bactrim or doxycycline will be used after discharge as above (6) DVT prophylaxis: Plan: SCDs, Lovenox Dispo-continued stay, But hopeful for discharge on Sunday if wound looks good and drain removed by orthopedic surgery Admission and Anticipated Discharge Date Admission Date: April 27, 2021 Anticipated date of discharge: 05/02/21 Subjective Patient reports he feels well, no pain.He remains afebrile. He is not having any chest pain or shortness of breath, no nausea. No diarrhea. Wound cultures came back today with MSSA Review of Systems Review of Systems: All systems reviewed & are unremarkable except as noted in HPI & below Physical Exam Constitutional: WD/WN, vitals as above Eyes: + anicteric sclerae Neck: trachea midline, no thyromegaly Respiratory: normal respiratory effort, lungs clear to auscultation Cardiovascular: RRR, no murmur, no edema Chest (Breasts): Chest: normal inspection of chest Gastrointestinal (Abdomen): normal bowel sounds, soft, nontender, no hepatosplenomegaly Musculoskeletal: Extremities: + extremities abnormal to inspection (LUE in dressing with Jose Manuel wrap, mild edema left hand and forearm), no cyanosis and no clubbing Skin: no rashes, warm and dry Neurologic: moves all extremities and awake; no focal motor deficits Psychiatric: A+Ox3, euthymic affect Lymphatic: no lymphedema Results & Data Results & Data ([facility]) Vital Signs (Past 12 Hours) Vital Signs Temp Pulse Pulse Resp BP BP Pulse Ox 05/01/21 07:30 37.0 C 92 H 18 136/83 94 05/01/21 03:30 37.2 C 120 H 18 137/88 96 Laboratory Results 05/01/21 05/01/21 05/01/21 Range/Units 08:21 08:19 08:19 WBC 9.95 (4.8-10.8) K/uL RBC 5.00 (4.7-6.1) M/uL Hgb 16.2 (14.0-18.0) g/dL Hct 46.5 (42-52) % MCV 93.0 (80-100) fL MCH 32.4 (25-34) pg MCHC 34.8 (32-36) g/dL RDW Std Deviation 43.4 (36.4-46.3) fL RDW Coeff of Michael 12.7 (11.5-14.5) % Plt Count 384 (130-400) K/uL MPV 9.9 (7.4-10.4) fL Immature Gran % (Auto) 2.8 % Neut % (Auto) 65.3 % Lymph % (Auto) 18.0 % Coffey % (Auto) 10.5 % Eos % (Auto) 2.9 % Baso % (Auto) 0.5 % Neut # (Auto) 6.50 (1.4-6.5) K/uL Lymph # (Auto) 1.79 (1.2-3.4) K/uL Coffey # (Auto) 1.04 H (0.11-0.59) K/uL Eos # (Auto) 0.29 (0-0.5) K/uL Baso # (Auto) 0.05 (0-0.2) K/uL Immature Gran # (Auto) 0.28 H (0.00-0.02) K/uL Sodium 137 (136-145) mmol/L Potassium 4.1 (3.5-5.1) mmol/L Chloride 104 (98-107) mmol/L Carbon Dioxide 30 (21-32) mmol/L Anion Gap 3.0 (3-11) BUN 11 (7-18) mg/dl Creatinine 0.77 (0.6-1.4) mg/dl Est Cr Clr Drug Dosing 154.0 ml/min Est GFR ( Amer) 121.8 ml/min Est GFR (Non-Af Amer) 105.1 ml/min BUN/Creatinine Ratio 14.2 (10-20) Glucose 156 H (70-99) mg/dl POC Glucose 176 H (70-99) mg/dl Calcium 8.9 (8.5-10.1) mg/dl Vancomycin Trough (See Comment) mcg/ml 05/01/21 04/30/21 04/30/21 Range/Units 08:19 20:35 17:21 WBC (4.8-10.8) K/uL RBC (4.7-6.1) M/uL Hgb (14.0-18.0) g/dL Hct (42-52) % MCV (80-100) fL MCH (25-34) pg MCHC (32-36) g/dL RDW Std Deviation (36.4-46.3) fL RDW Coeff of Michael (11.5-14.5) % Plt Count (130-400) K/uL MPV (7.4-10.4) fL Immature Gran % (Auto) % Neut % (Auto) % Lymph % (Auto) % Coffey % (Auto) % Eos % (Auto) % Baso % (Auto) % Neut # (Auto) (1.4-6.5) K/uL Lymph # (Auto) (1.2-3.4) K/uL Coffey # (Auto) (0.11-0.59) K/uL Eos # (Auto) (0-0.5) K/uL Baso # (Auto) (0-0.2) K/uL Immature Gran # (Auto) (0.00-0.02) K/uL Sodium (136-145) mmol/L Potassium (3.5-5.1) mmol/L Chloride (98-107) mmol/L Carbon Dioxide (21-32) mmol/L Anion Gap (3-11) BUN (7-18) mg/dl Creatinine (0.6-1.4) mg/dl Est Cr Clr Drug Dosing ml/min Est GFR ( Amer) ml/min Est GFR (Non-Af Amer) ml/min BUN/Creatinine Ratio (10-20) Glucose (70-99) mg/dl POC Glucose 168 H 141 H (70-99) mg/dl Calcium (8.5-10.1) mg/dl Vancomycin Trough 15.3 (See Comment) mcg/ml 04/30/21 Range/Units 12:16 WBC (4.8-10.8) K/uL RBC (4.7-6.1) M/uL Hgb (14.0-18.0) g/dL Hct (42-52) % MCV (80-100) fL MCH (25-34) pg MCHC (32-36) g/dL RDW Std Deviation (36.4-46.3) fL RDW Coeff of Michael (11.5-14.5) % Plt Count (130-400) K/uL MPV (7.4-10.4) fL Immature Gran % (Auto) % Neut % (Auto) % Lymph % (Auto) % Coffey % (Auto) % Eos % (Auto) % Baso % (Auto) % Neut # (Auto) (1.4-6.5) K/uL Lymph # (Auto) (1.2-3.4) K/uL Coffey # (Auto) (0.11-0.59) K/uL Eos # (Auto) (0-0.5) K/uL Baso # (Auto) (0-0.2) K/uL Immature Gran # (Auto) (0.00-0.02) K/uL Sodium (136-145) mmol/L Potassium (3.5-5.1) mmol/L Chloride (98-107) mmol/L Carbon Dioxide (21-32) mmol/L Anion Gap (3-11) BUN (7-18) mg/dl Creatinine (0.6-1.4) mg/dl Est Cr Clr Drug Dosing ml/min Est GFR ( Amer) ml/min Est GFR (Non-Af Amer) ml/min BUN/Creatinine Ratio (10-20) Glucose (70-99) mg/dl POC Glucose 181 H (70-99) mg/dl Calcium (8.5-10.1) mg/dl Vancomycin Trough (See Comment) mcg/ml PG Care Time/CCT Total # of Minutes Spent Total Time Spent with Patient: Total time spent is greater than 50% in coordination of care (as documented) at patient's floor/unit and/or counseling patient: Coding Level of Care Code 12302 Subseq Hosp Care Lvl 2 Diagnoses Cellulitis of left arm L03.114 Hypertension I10 Hyperlipidemia E78.5 Diabetes E11.9 Failure of outpatient treatment Z78.9 DVT prophylaxis Z29.9
[2021-05-01] MEDS: ROSUVASTATIN CALCIUM 10 MG TAB PO SCH (19:36)
[2021-05-02 06:34] LABS: Basophils # (auto) 0.04 K/uL (0-0.2); Basophils % (auto) 0.4 %; Eosinophils # (auto) 0.33 K/uL (0-0.5); Eosinophils % (auto) 3.6 %; Hematocrit (blood only) 47.2 % (42-52); Hemoglobin 15.9 g/dL (14.0-18.0); Immature Granulocytes # (auto) 0.29 K/uL (0.00-0.02); Immature Granulocytes % (auto) 3.2 %; Lymphocytes # (auto) 1.91 K/uL (1.2-3.4); Mean Corpuscular Hemoglobin 31.1 pg (25-34); Mean Corpuscular Hgb Conc 33.7 g/dL (32-36); Mean Corpuscular Volume 92.4 fL (80-100); Mean Platelet Volume 9.9 fL (7.4-10.4); Monocytes # (auto) 0.94 K/uL (0.11-0.59); Monocytes % (auto) 10.3 %; Neutrophils % (auto) 61.5 %; Platelet Count 413 K/uL (130-400); RDW Coefficient of Variation 12.6 % (11.5-14.5); RDW Standard Deviation 42.4 fL (36.4-46.3); Red Blood Count 5.11 M/uL (4.7-6.1); White Blood Count 9.11 K/uL (4.8-10.8)
[2021-05-02 07:07] LABS: BUN Creatinine Ratio 15.6 (10-20); Calcium 9.1 mg/dl (8.5-10.1); Creatinine Clr Calc Pharmacy 142.9 ml/min; Est GFR (African American) 118.1 ml/min; Est GFR (Non-African American) 101.9 ml/min
[2021-05-02] MEDS: cefTRIAXone SODIUM 2,000 MG in DEXTROSE 5% 50 ML IV SCH (07:41)
[2021-05-02] MEDS: ENOXAPARIN INJ 40 MG/0.4 ML SYR SQ SCH (07:42)
[2021-05-02] MEDS: VALSARTAN 80 MG TAB PO SCH (07:42)
[2021-05-02] MEDS: INSULIN ASPART 100 UNITS/ML 3 ML PEN SC SCH ×2 (08:43→12:53)
--- NOTE | 2021-05-02 09:53 | Orthopedic Progress Note ---
Date of Service May 02, 2021 Assessment & Plan (1) Septic olecranon bursitis of left elbow: Overall is doing very well. Is not having much pain in the left elbow. We change his dressing and pull the drain. He is orthopedically stable for discharge when medically ready. Cultures and sensitivities are back. He can follow-up in the office in 2 weeks for suture removal. Full orthopedic discharge instructions were placed in the discharge summary. Farooq Snyder was seen and examined at bedside this morning. Overall is doing well. He is happy to get the dressing changed. He has no new complaints.. Review of Systems All systems reviewed & are unremarkable except as noted in HPI & below. Physical Exam On physical examination of the left elbow, the incision is healing nicely. I did remove the drain. I did range of motion of his elbow and there was a little bit of purulent discharge.. Results & Data Results & Data Laboratory Results . Diagnostic Findings . PG Care Time/CCT Total # of Minutes Spent Total Time Spent with Patient: Total time spent is greater than 50% in coordination of care (as documented) at patient's floor/unit and/or counseling patient: Coding Level of Care Code 06681 Post Operative Follow-Up Diagnoses Septic olecranon bursitis of left elbow M71.122
--- NOTE | 2021-05-02 12:54 | Discharge Summary ---
Date of Service May 02, 2021 Admission HPI Per Admitting Provider The patient is a 50-year-old male with a past medical history including diabetes mellitus, hyperlipidemia, hypertension and obesity who was initially seen in the emergency department on 04/25/2021, diagnosed with cellulitis of left arm and elbow, and was started on Keflex and Bactrim and advised to follow-up with his family physician. The patient presents to the emergency department today with worsening symptoms as noted above, despite appropriate use these antibiotics. He denies any recent trauma, he denies any tick bites he denies any sick exposures. He does eat a lot of red meats and seafood. He does have a brother with an episode of gout, however, he himself has not have any personal history of gout Principal Diagnosis Left olecranon bursitis and cellulitis, MSSA Discharge Exam Constitutional WD/WN, vitals as above Neck trachea midline, no thyromegaly Respiratory normal respiratory effort, lungs clear to auscultation Cardiovascular RRR, no murmur, no edema Gastrointestinal (Abdomen) normal bowel sounds, soft, nontender, no hepatosplenomegaly Musculoskeletal no cyanosis or clubbing, extremities motor strength 5/5 (some pain in left elbow with range of motion) Skin + erythema (slight around left elbow, not hot, minimal tenderness) Neurologic patellar DTR's 2+ bilat, sensation intact and PERRL, EOMI, accommodation nl, no face palsy, no dysarthria Psychiatric A+Ox3, euthymic affect Discharge Data Allergies Allergy/AdvReac Type Severity Reaction Status Date / Time No Known Allergies Allergy Verified 04/29/21 12:44 Procedures Performed Operation Date: 04/29/21 11:10 Actual Procedures p Incision and Drainage Left Septic Olecranon Bursitis(Left) - Claudio Choe DO Ordered Studies 04/28/21 12:52 CT elbow LT w con Urgent Hospital Course (1) Cellulitis of left arm: Cellulitis of left arm/failure of outpatient treatment- Upon admission with significant fluctuance over left elbow with small scab centrally, ++erythema from wrist up to axilla over majority of LUE, decreased ROM 10-90 degrees left elbow, +TTP and warmth CT elbow with multilocular complex fluid collection of the subcutaneous dorsal tissues measuring up to 10 cm is suggestive of an abscess. With septic olecranon bursitis and surrounding cellulitis No h/o MRSA or frequent skin infections but does have DMII now s/p I&D on 04/29, W[place] drain in place for three days, pulled on 05/02 by orthopedic surgery Leukocytosis improved s/p surgery, remains afebrile here BCxs remain NGTD Wound cultures from I&D Gram stain Now with MSSA will discharge to home today on doxycycline 100mg BID x 9 more days, this will total 14 days of treatment follow up with PCP in one week and with orthopedics in two weeks for suture removal (2) Hypertension: BPs controlled Continue valsartan (3) Hyperlipidemia: Continue rosuvastatin 10 mg in the evening (4) Diabetes: Hold Jardiance and Metformin while admitted, resume on discharge hemoglobin A1c well controlled at 7.2% (5) Failure of outpatient treatment: Outpatient antibiotics Keflex and Bactrim are being held, in favor of inpatient IV vancomycin and ceftriaxone likely failure was due to olecranon bursitis, infected bursa will discharge on Doxy (6) DVT prophylaxis: SCDs, Lovenox Dispo- d/c to home Total Time Total Time Spent Total Time Spent (In Minutes): 32 Discharge Plan Discharge Items Patient Disposition: Home - Self-Care Reason For Visit: LEFT ARM CELLULITIS, FAILURE OF OUTPATIENT TREATME Condition on Discharge: Fair Non-emergency contact: Primary Care Provider and Surgeon Call non-emergency contact if: you have any medication questions, your symptoms worsen and you have a fever Follow-up/Referrals: Claudio Choe DO [Physician] - (2 weeks) Nelli Melendrez CRNP [Primary Care Provider] - (one week) Diet: Carb Consistent or DM2 Addtl Attending Provider Instructions: Left olecranon bursitis and cellulitis, cultures grew out Staph aureus, no resistance treated with IV Vancomycin and Ceftriaxone from time of admission (04/27) incision and drainage of the bursa sac by orthopedic surgery please follow their instructions below complete 9 more days of Doxycycline 100mg twice a day which will be 14 days total antibiotics use Tylenol as needed for pain, only use Oxycodone for severe pain Addtl [employer] Provider Instructions: ORTHOPEDIC INSTRUCTIONS Activity Recommendations: Full range of motion of elbow Medications: Take antibiotics as prescribed Dressing Care: You may leave the incision open to air if it is not draining. If the wound is still draining then keep it covered. Showering: Do not get the incision wet until follow-up in the office in 2 weeks. Follow-Up Visit: Follow-up with Dr. Choe 2-3 weeks after your day of surgery. He will remove your sutures and answer any questions. If you have any questions call Pending Studies at Discharge: No Stand-Alone Forms: My [facility], Smoking Cessation Medications and DC Order Prescriptions: New oxycodone 5 mg Tablet 5 mg PO Q4H PRN (Reason: pain) 7 Days Qty: 14 RF: 0 doxycycline hyclate 100 mg tablet 100 mg PO BID 9 Days Qty: 19 RF: 0 Continued valsartan 80 mg tablet 80 mg PO DAILY RF: 0 metformin 1,000 mg tablet 1,000 mg PO BID RF: 0 rosuvastatin 10 mg tablet 10 mg PO HS RF: 0 Jardiance 10 mg tablet 10 mg PO DAILY RF: 0 Discontinued sulfamethoxazole-trimethoprim [Bactrim DS] 800-160 mg tablet 1 tab PO Q12H 10 Days Qty: 20 RF: 0 cephalexin 500 mg capsule 500 mg PO Q6H 10 Days Qty: 40 RF: 0 Discharge Orders: Discharge Order (Routine); Ordered 05/02/21 Ordered By: Jay Castrejon/Other Patient Handouts: A1C, Managing Type 2 Diabetes Admission Data Admit Date/Time: 04/27/21 21:59 Attending Provider: Jay Muñoz Admit Provider: Celestino Matamoros Primary Care Provider: Nelli Melendrez Coding Level of Care Code D/C DAY MANAGEMENT >30 MINS Diagnoses Cellulitis of left arm L03.114 Hypertension I10 Hyperlipidemia E78.5 Diabetes E11.9 Failure of outpatient treatment Z78.9 DVT prophylaxis Z29.9
== END 2021-05-02 13:19 | disposition home or self-care (01) | DRG 501 ==
LOC: ED 16:25 → 3W 21:59 → SUATTDRO 21:59 → 3W 23:03